=== PATIENT | female | born 2000 | race Caucasian/White ===

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

== ENCOUNTER 2021-03-17 18:25 | Outpatient (REF) | payer MEDICAID, SELFPAY ==
[2021-03-20 15:06] LABS: Chlamydia Result Negative (Negative); GC Result Negative (Negative)
== END 2021-03-17 18:26 | disposition home or self-care (01) ==
LOC: LBN 18:25
PROVIDERS: Visit Provider Nurse Practitioner Family
DX: Z11.3 Encounter for screening for infections with a predominantly sexual mode of transmission (principal)
CPT/HCPCS: 87491; 87591

== ENCOUNTER 2021-06-07 03:35 | Outpatient (CLI) | payer MEDICAID, SELFPAY ==
[2021-06-07 11:51] LABS: Kit/Specimen SENT
[2021-06-07 12:00] LABS: Abs Immature Grans 0.07 10^3/uL (0.0-0.06); Absolute Eosinophil Count 0.28 10^3/uL (0.0-0.7); Absolute Lymphocyte Count 2.29 10^3/uL (1.2-3.4); Absolute Monocyte Count 0.84 10^3/uL (0.1-0.8); Absolute Neutrophil Count 11.41 10^3/uL (1.2-6.7); Basophils % 0.5; Eosinophils % 1.9; HCT 41.9 % (36.0-46.0); HGB 13.7 g/dL (11.2-15.7); Immature Grans % 0.5; Lymphocytes % 15.3; MCH 29.9 pg (27.0-33.0); MCHC 32.7 % (32.0-36.0); MCV 91.5 fL (80-95); MPV 9.2 fL (8.0-11.0); Monocytes % 5.6; Neutrophils % 76.2; Nucleated RBC 0 %; Platelet Count 337 10^3/uL (130-400); RBC 4.58 10^6/uL (3.93-5.22); RDW 13.1 % (11.7-14.6); RDW-SD 43.9 fL; WBC 14.97 10^3/uL (4.4-10.8)
[2021-06-07 12:01] LABS: Absolute Basophil Count 0.07 10^3/uL (0.0-0.2)
[2021-06-07 13:04] LABS: TSH (W/Ref FT4) 1.81 uIU/mL (0.36-3.74)
[2021-06-08 10:58] LABS: Varicella IgG Antibody Positive (See Note)
[2021-06-08 11:46] LABS: Hepatitis B Surface Ag Negative (Negative)
[2021-06-08 12:25] LABS: HIV-1/2 Ag & Ab Screen Negative (Negative)
[2021-06-08 12:32] LABS: Hepatitis C Ab w Rflx HCV PCR Negative (Negative)
[2021-06-08 20:46] LABS: Syphilis Total Ab w/Reflex Nonreactive (Nonreactive)
[2021-06-12 14:50] LABS: Result Summary NEGATIVE; Specimen WB Whole Blood
== END 2021-06-07 03:36 | disposition home or self-care (01) ==
LOC: LBO 03:35
PROVIDERS: Visit Provider Advanced Practice Midwife
DX: Z34.91 Encounter for supervision of normal pregnancy, unspecified, first trimester (principal); R51.9 Headache, unspecified; Z68.30 Body mass index [BMI] 30.0-30.9, adult; Z11.4 Encounter for screening for human immunodeficiency virus [HIV]; Z11.59 Encounter for screening for other viral diseases; Z01.84 Encounter for antibody response examination; Z3A.10 10 weeks gestation of pregnancy
CPT/HCPCS: 86787; 86803; 86850; 86900; 86901; 87340; 87389; 81220; 84443; 85025; 86780

== ENCOUNTER 2021-06-07 12:33 | Outpatient (REF) | payer MEDICAID, SELFPAY ==
[2021-06-07 13:56] LABS: *AMPHETAMINES SCREEN URINE Negative (Negative); *BARBITURATES SCREEN URINE Negative (Negative); *BENZODIAZEPINES SCREEN URINE Negative (Negative); Cannabinoids THC Negative (Negative); Cocaine Screen,Urine Negative (Negative); METHADONE URINE SCREEN Negative (Negative); OPIATES URINE SCREEN Negative (Negative)
[2021-06-07 14:02] LABS: Tricyclic Antidepressants Negative (Negative)
[2021-06-08 14:55] LABS: Chlamydia Result Negative (Negative); GC Result Negative (Negative)
[2021-06-13 14:38] LABS: Buprenorphine Negative ng/mL (Cutoff: 5.0); Norbuprenorphine Negative ng/mL (Cutoff: 2.5)
== END 2021-06-07 12:34 | disposition home or self-care (01) ==
LOC: LBN 12:33
PROVIDERS: Visit Provider Advanced Practice Midwife
DX: Z34.91 Encounter for supervision of normal pregnancy, unspecified, first trimester (principal); Z11.3 Encounter for screening for infections with a predominantly sexual mode of transmission; Z3A.10 10 weeks gestation of pregnancy
CPT/HCPCS: 80307; 87491; 87591; 87086

== ENCOUNTER 2021-06-08 04:26 | Outpatient (CLI) | payer MEDICAID, SELFPAY ==
[2021-06-08 12:06] LABS: Glucose,1 Hr (Glucola) 96 mg/dL (80-140)
[2021-06-09 10:50] LABS: Rubella IgG Ab (UVM) Positive (See Note)
== END 2021-06-08 04:27 | disposition home or self-care (01) ==
LOC: LBO 04:26
PROVIDERS: Visit Provider Advanced Practice Midwife
DX: Z34.91 Encounter for supervision of normal pregnancy, unspecified, first trimester (principal); Z68.31 Body mass index [BMI] 31.0-31.9, adult; Z11.59 Encounter for screening for other viral diseases; Z3A.10 10 weeks gestation of pregnancy
CPT/HCPCS: 36415; 82950; 86762

== ENCOUNTER 2021-07-31 00:30 | Outpatient (CLI) | payer MEDICAID, SELFPAY ==
--- NOTE | 2021-07-31 08:00 | DI.US_ITS ---
Exam(s) US OB 2-3 TRIMESTER EXAM: US OB 2-3 TRIMESTER CLINICAL HISTORY: anatomY survey,[id number]. TECHNIQUE: Transabdominal obstetrical ultrasound was performed. COMPARISON: US ABDOMEN ULTRASOUND from 01/12/2010 FINDINGS: There is a single viable intrauterine gestation with cardiac activity identified-152 bpm. Amniotic fluid: There is a normal amount of amniotic fluid. Placental location: The placenta is posterior grade 1,with no evidence of placenta previa.Distant fro m tip of placenta to the internal cervical os is 4.7 cm ANATOMY: A 3 vessel umbilical cord is seen. A four-chamber cardiac view was obtained. Right and left ventricular outflow tracts were imaged. There are no obvious abnormalities of the spinal column evident. There is no obvious abnormal ity of the anterior abdominal wall. stomach and urinary bladder are identified and there is no evidence of hydronephrosis. No abnormalities of the upper lip region are identified. No evidence of choroid plexus cysts i n the brain. Dating parameters place this at approximately 19 weeks gestational age. BPD measures 19 weeks and 3 days HC measures 19 weeks and 2 days AC measures 18 weeks and 3 days FL measures 18 weeks and 5 days Estimated weight is 251 gm-0 pounds 9 ounces Fetus is at the 69th percentile on the Hadlock scale. IMPRESSION:: Single viable intrauterine gestation which is approximately 19 weeks gestational age, i mplying an MIL of December 25, 2021. There are no obvious anomalies evident on today's study. The placenta is posterior with no evidence of placenta previa. There is a normal amount of amniotic fluid. DATA REPOSITORY:
== END 2021-07-31 00:50 ==
PROVIDERS: PCP Advanced Practice Midwife; Visit Provider Advanced Practice Midwife
DX: Z34.92 Encounter for supervision of normal pregnancy, unspecified, second trimester (principal); Z3A.18 18 weeks gestation of pregnancy
CPT/HCPCS: 76805

== ENCOUNTER 2021-10-11 02:29 | Outpatient (CLI) | payer MEDICAID, SELFPAY ==
[2021-10-11 14:26] LABS: HCT 32.5 % (36.0-46.0); HGB 10.8 g/dL (11.2-15.7); MCH 30.2 pg (27.0-33.0); MCHC 33.2 % (32.0-36.0); MCV 90.8 fL (80-95); MPV 8.9 fL (8.0-11.0); Platelet Count 447 10^3/uL (130-400); RBC 3.58 10^6/uL (3.93-5.22); RDW 13.2 % (11.7-14.6); RDW-SD 43.1 fL; WBC 20.99 10^3/uL (4.4-10.8)
[2021-10-11 14:42] LABS: Glucose,1 Hr (Glucola) 135 mg/dL (80-140)
== END 2021-10-11 02:30 | disposition home or self-care (01) ==
LOC: LBO 02:30
PROVIDERS: Advanced Practice Midwife; PCP Advanced Practice Midwife; Visit Provider Advanced Practice Midwife
DX: Z34.93 Encounter for supervision of normal pregnancy, unspecified, third trimester (principal)
CPT/HCPCS: 36415; 82950; 85027

== ENCOUNTER 2021-10-18 02:10 | Outpatient (CLI) | payer MEDICAID, SELFPAY ==
[2021-10-18 11:59] LABS: Glucose 1 Hour 132 mg/dL
[2021-10-18 14:03] LABS: Glucose 3 Hour 116 mg/dL
== END 2021-10-18 02:11 | disposition home or self-care (01) ==
LOC: LBO 02:10
PROVIDERS: PCP Advanced Practice Midwife; Visit Provider Advanced Practice Midwife
DX: Z34.93 Encounter for supervision of normal pregnancy, unspecified, third trimester (principal)
CPT/HCPCS: 36415; 82951

== ENCOUNTER 2021-11-23 10:07 | Outpatient (CLI) | payer MEDICAID, SELFPAY ==
--- NOTE | 2021-11-23 10:00 | RT.EKG_ITS ---
APPROVED REPORT Exam: Resting ECG Reason for Exam: tachycardia, syncope Patient Location: O HR:115 bpm ECG Measurements Heart Rate 115 AXIS WY 115 P 28 QRSd 88 QRS 96 QT 314 T 1 QTc 435 Conclusion Sinus tachycardia...rate> 99 Borderline right axis deviation...QRS axis ( 90,110)
== END 2021-11-23 10:08 | disposition home or self-care (01) ==
LOC: DI.CARD 10:09
PROVIDERS: PCP Advanced Practice Midwife; Visit Provider Internal Medicine Cardiovascular Disease
DX: R00.0 Tachycardia, unspecified (principal); R55 Syncope and collapse; I45.19 Other right bundle-branch block
CPT/HCPCS: 93010

== ENCOUNTER 2021-11-23 14:59 | Outpatient (CLI) | payer MEDICAID, SELFPAY ==
--- NOTE | 2021-12-08 08:43 | W.CARDEVENT ---
Date of service: 12/08/21 Time of Service: 08:43 Cardiac Event Recorder Referring Provider:: Gavin John Indications:: Tachycardia Cardiac Event Note: This is a 14-day event monitor, ordered for tachycardia Predominant rhythm was sinus with an average heart rate of 106. Minimum was 75, maximum 181 There were very rare ventricular ectopic beats There were very rare atrial premature beats. There was one 9 beat atrial run at a rate of 135 There was no atrial fibrillation, no high-grade AV block, no pauses 3 seconds The isolated patient symptom was associated with sinus tachycardia at a rate of 105
== END 2021-11-23 15:00 | disposition home or self-care (01) ==
LOC: RT 15:02
PROVIDERS: PCP Advanced Practice Midwife; Visit Provider Internal Medicine Cardiovascular Disease
DX: R00.0 Tachycardia, unspecified (principal)
CPT/HCPCS: 93246

== ENCOUNTER 2021-12-06 13:47 | Outpatient (REF) | payer MEDICAID, SELFPAY ==
[2021-12-06 15:12] LABS: *AMPHETAMINES SCREEN URINE Negative (Negative); *BARBITURATES SCREEN URINE Negative (Negative); *BENZODIAZEPINES SCREEN URINE Negative (Negative); Cannabinoids THC Negative (Negative); Cocaine Screen,Urine Negative (Negative); METHADONE URINE SCREEN Negative (Negative); OPIATES URINE SCREEN Negative (Negative)
[2021-12-06 15:18] LABS: Tricyclic Antidepressants Negative (Negative)
[2021-12-12 14:38] LABS: Buprenorphine Negative ng/mL (Cutoff: 5.0); Norbuprenorphine Negative ng/mL (Cutoff: 2.5)
== END 2021-12-06 13:48 | disposition home or self-care (01) ==
LOC: LBN 13:47
PROVIDERS: PCP Advanced Practice Midwife; Visit Provider Advanced Practice Midwife
DX: Z34.93 Encounter for supervision of normal pregnancy, unspecified, third trimester (principal)
CPT/HCPCS: 80307; 87081

== ENCOUNTER 2021-12-22 00:30 | Outpatient (CLI) | payer MEDICAID, SELFPAY ==
[2021-12-22 00:52] VITALS: BP 126/80; PULSE 91
[2021-12-22 00:54] VITALS: TEMP 37.1
--- NOTE | 2021-12-22 01:17 | W.OBNST ---
Date of service: 12/22/21 Time of Service: 01:18 NST Evaluation Reason for NST Reasons for Nonstress Test: FALSE LABOR Gestational Age Gestational Age in Weeks and Days: 38 Weeks and 6Days Vital Signs Blood Pressure: 126/80 Pulse: 91 Temperature: 98.7 F Urine Results Urine Protein: Negative Urine Ketones: Negative Urine Glucose: Negative Urine Blood: Negative NST Information Date on Monitor: 12/22/21 Time on Monitor: 00:30 Date off Monitor: 12/22/21 Time off Monitor: 01:20 Total Time on Monitor: 50 NST Interventions: PO Hydration Contraction Frequency: irregular, mild, frequent NST Evaluation Patient States Movement: Present FHR Baseline: 150 Variability: Moderate 6-25 bpm Accelerations: 15x15 Decelerations: None and Variable NST Results: Reactive Note PETRA (done for variable decel x2) Results of PETRA: 13.0 NST Note Note: Cvx 2/60% posterior, intact membranes, vtx -2 ROP Not in labor Urine concentrated with sp gr 1.025 Pt appears comfortable, relaxed Tolerated PO hydration well & uterine irrritability decreased Discharged to home, pt declines sleep aid F/up at next sched'ed appt next week and prn NST Reviewed and Verified by: Nina Banda
[2021-12-22 01:25] VITALS: BP 126/80; PULSE 91; TEMP 37.1
--- NOTE | 2021-12-25 10:07 | HPE_ITS ---
Date of service: 12/25/21 Time of Service: 10:07 Assessment and Plan Assessment and plan (1) 39 weeks gestation of : Status: Acute Assessment and plan: A: 21 yo G1 @ 39 wks prodromal sx vs labor GBS neg, Rh+ Category 1 tracing, NST in progress Low risk for SD and PPH P: Oupt observation for cervical change and active labor Recheck cvx in 2-3 hrs PO intake as desired OB-HPI Labor/Delivery History of Present Illness Reason for Visit: Rule Out Labor Chief Complaint: Uterine Contractions. MIL Calculator Estimated Delivery Date Method Current WG Current Estimate 12/30/21 Ultrasound #1 39w 2d Other Estimates 12/22/21 LMP (Certain) 40w 3d Comments: Contractions began around 0630 this morning, are stronger then they have been to the point of stopping her in her tracks when they come. Denies bleeding or ROM. History of Present Expected Delivery Route/Plan - CNM FOB - Agus Brown (his second child, age 2) BG- Makanna GBS negative Interested in immediate PP Nexplanon Desires to use tub for labor and , Agus will be support person, Specific Issues/Plan 1. Heartburn - protonix 40mg escribed. Also using milk which helps - 1a. Symptoms recurred and she stopped taking protonix. Resuming protonix or trying OTC zantac recommended. 2. Desires LC consult after 36 wks prior to delivery 3. BMI 31, early glucola 96. @ 28 yug=164, 3 hr GTT done 10/18=nml x4 4. Smoker, half a pack per day, declines cessation assistance 5. Pt and FOB decline COVID vaccination 6. Hx depression not on meds, PHQ9 score=2, declines referral to [facility] 6a. At risk for PPD, will discuss meds toward end of preg 6b. Checked in on mood @ 34 wks, pt feels happy, declines medication 7. [place] and CF screening drawn 06/07, desires AFP 16-20 wks-declines 7a. CF screen negative, [place] result=low prob x3, female fetus 8. Hx concussions & frequent LIN's, ref to neurology sent 06/07 8a. Neuro consult completed 06/14, see note, begin Mag 400 mg daily, consider Vistaril 9. Advised low dose ASA for nulliparity & BMI, 81mg/162mg alternating daily - not taking aspirin- encouraged 10. PCN allergy with last exposure and skin rash reaction in fall 10a. screening questions, assess for allergy testing: < 1 yr since reax, pt declines testing, will consider after delivery 11. Tachycardia episodes 08/11 - referred to PCP at [facility] 11a. Saw PCP - no testing recommended - follow up visit in one month 09/[address] Rios has cleared patient for delivery at [facility] 12. Mild anemia at 28 wks, iron supplement Rx'ed 13. Seasonal allergies- Takes benadryl 50 mg twice daily. 14. Asthma - using inhaler daily, referred to PCP for asthma symptoms. Assessment: History Reviewed & Current Review of Systems Narrative: Well appearing healthy female, relaxed, conversational Constitutional Constitutional: Reports system reviewed and no additional complaints, except as documented Cardiovascular Cardiovascular: Reports system reviewed and no additional complaints, except as documented Respiratory Respiratory: Reports system reviewed and no additional complaints, except as documented Gastrointestinal Gastrointestinal: Reports system reviewed and no additional complaints, except as documented Genitourinary Genitourinary: Reports system reviewed and no additional complaints, except as documented Musculoskeletal Musculoskeletal: Reports system reviewed and no additional complaints, except as documented Integumentary/Breasts Skin/Breast: Reports system reviewed and no additional complaints, except as documented Neurologic Neurologic: Reports system reviewed and no additional complaints, except as documented Psychiatric Psychiatric: Reports system reviewed and no additional complaints, except as documented PFSH All Active Problems (Updated 12/25/21 @ 10:30 by Nina Banda) 39 weeks gestation of (Acute) (Acute) Migraine headache without aura (Acute) BMI 31.0-31.9,adult (Acute) History of depression (Acute) Headache disorder (Acute) Smoker (Acute) Mild intermittent asthma, uncomplicated (Acute 11/07/16) exercise trigger Medical History (Updated 12/25/21 @ 10:30 by Nina Banda) Acid indigestion Anemia Asthma Dyslexia Elevated glucose level Encounter for removal of etonogestrel implant History of tachycardia Lightheadedness Syncopal episodes Family History Other Stroke grandmother Social History Smoking/Tobacco Use Status: Current every day Tobacco Type: cigarettes Smoking risk assessment performed?: Yes Alcohol Intake: never Drug use: Never Substance use type: does not use Adopted: Yes Do you feel safe at home: Yes Do you feel safe in your relationship?: Yes Female Reproductive History Menstrual control method: implanted History History 1 Para 0 Hx # Term Pregnancies 0 Multiple births 0 Hx # Pregnancies 0 Ectopic pregnancies 0 AB induced 0 Hx Number of Living Children 0 AB spontaneous 0 Meds Allergies and Home Medications Allergies Allergy/AdvReac Type Severity Reaction Status Date / Time Penicillins Allergy Mild skin rash Verified 12/19/21 13:32 cats AdvReac Mild stuffy/runny Uncoded 12/19/21 13:32 nose/sneezing Home Medications Medication Instructions Recorded Confirmed Type inhalational spacing device #1 unit 08/26/17 12/19/21 Rx (Aerochamber Plus Flow-Vu) prenat.vits,victor hugo,[id number] 1 tab PO DAILY 04/26/21 12/22/21 History aspirin 81 mg tablet,delayed 81 mg PO DAILY #60 tab 06/07/21 12/22/21 Rx release albuterol sulfate 90 mcg/actuation 2 puff INHALATION Q4H PRN #1 09/27/21 12/22/21 Rx aerosol inhaler (ProAir HFA) inhaler ferrous sulfate 325 mg (65 mg 325 mg PO DAILY #60 tab 10/12/21 12/22/21 Rx iron) tablet,delayed release ondansetron HCl 4 mg tablet 4 mg PO Q8H PRN #20 tab 10/12/21 12/22/21 Rx diphenhydramine HCl 25 mg capsule 50 mg PO BID PRN cap 10/25/21 12/22/21 History (Allergy (diphenhydramine)) omeprazole 40 mg capsule,delayed 40 mg PO DAILY #30 cap 11/14/21 12/22/21 Rx release Exam Physical Exam Vital Signs Reviewed: Yes Constitutional Constitutional: no acute distress Comments: Well appearing healthy female Detailed Labor and Delivery Exam Dilation: 3.5 Effacement (%): 85 station: -2 Cervix position: mid Consistency: soft FARAH Score(Cervical Ripeness Score): 8 Amniotic Membrane Status: Intact Contraction Frequency(min): irregular Contraction Duration(sec): 50-60 Contraction Intensity: Mild Fetus A Heart Rate Baseline: 140 Monitor Accelerations: Present Monitor Decelerations: None Variability: Moderate (6-25 BPM) Presentation: Cephalic Categories: Category I Est. Weight: 7 lb 4.404 oz Est. Weight: 3300 gms HEENT Exam HEENT Exam: Normal Neck Exam Neck Exam: Normal Chest/Brest/Axilla Exam Chest Exam: Normal Breast Exam Breast Exam: Not Done Respiratory Exam Respiratory Exam: Normal Cardiovascular Exam Cardiovascular Exam: Normal Abdominal Exam Abdominal Exam: Normal (Gravid, nontender) Exam Exam: Normal Extremities Exam Extremities Exam: Normal Back/Spine/Pelvis Exam Back Exam: Normal Pelvis Adequate: Yes Skin Exam Skin Exam: Normal Neurological Exam Neurological Exam: Normal Psychiatric Exam Psychiatric Exam: Normal Results Results Group Beta Strep: Negative Blood Type: AB+ Rubella Status: Immune Varicella Immunity: Immune Risk Assessment Risk for Shoulder Dystocia Historical/Initial OB: POSITIVE FOR: Pre- BMI>30; NEGATIVE FOR: Pelvic Abnormality, Previous Shoulder Dystocia or Previous Macrosomia Increased Risk?: No Delivery Plan @ 36wks: SPont labor, Risk for Pre-Eclampsia Date Initiated/Initials: is indicated, pt advised to start @ 12 wks. JK (pt never did start taking) Yes, if one or more: NEGATIVE FOR: Hx Pre-E/Gest HTN, Chronic HTN, Multiple Gestation, Pre-gestational DM, Renal Disease, Systemic Lupus or APA Syndrome Yes, if 2 or more: POSITIVE FOR: Nulliparity and BMI>30; NEGATIVE FOR: Age>= 35 yrs, >10yr btwn pregnancies, ethinicty, Mother/Sister w/ Pre-E or Previous IUGR Risk for Post- Hemorrhage Initial: NEGATIVE FOR: Multiple Gestation, Previous PPH, Known Clotting Deficiency, Grand Multiparity or Anticoagulation At Risk?: No Risks Reviewed Risks Reviewed Upon Admission: Yes
== END 2021-12-22 01:40 | disposition home or self-care (01) ==
LOC: OBS 00:57 → BCD 09:00
PROVIDERS: PCP Advanced Practice Midwife; Visit Provider Advanced Practice Midwife
DX: O47.1 False labor at or after 37 completed weeks of gestation (principal); Z3A.38 38 weeks gestation of pregnancy
CPT/HCPCS: 59025; G0378

== ENCOUNTER 2021-12-25 10:03 | Observation (INO) | payer MEDICAID, SELFPAY ==
[2021-12-25] VITALS (60 sets, daily range): BP systolic 93–152; BP diastolic 58–88; PULSE 78–184; TEMP 36.8; O2SAT 96–100
--- NOTE | 2021-12-25 13:16 | W.PM.OBNL1 ---
Date of service: 12/25/21 Time of Service: 13:16 Pelvic Exam Dilation: 3.5 Effacement (%): 85 station: -2 Cervix Position: mid Consistency: soft Vaginal Exam Presentation: Cephalic Fetus A Monitor: External (US) Heart Rate Baseline: 130 Presentation: Cephalic Variability: Moderate (6-25 BPM) Categories: Category I Accelerations: 15 X 15 Decelerations: None Amniotic Membrane Status: Intact Assessment and Plan Assessment and plan (1) 39 weeks gestation of : Status: Acute (2) False labor after 37 weeks of gestation without delivery: Status: Acute Assessment and plan: a: No cervical change, pt able to eat well without emesis P: Discharge to home Pt plans to stay closer to hospital at her mother's tonight Will check in by phone tomorrow Objective Temp Pulse BP 98.2 F 78 126/88 12/25/21 10:27 12/25/21 10:33 12/25/21 10:33 Vital Signs Reviewed: Yes Subjective Interval history since last seen: Contractions have been the same in strength and frequency since she arrived 3 hrs ago. Did see some light spotting on post void wipe a few minutes ago. Ate a cheeseburger for lunch, denies nausea.
--- NOTE | 2021-12-25 13:28 | W.PM.OBDISCH ---
Date of service: 12/25/21 Time of Service: 13:28 DS: Diagnosis Discharge Diagnosis (1) 39 weeks gestation of : Status: Acute (2) False labor after 37 weeks of gestation without delivery: Status: Acute Discharge Plan Disposition Patient Disposition: HOME Condition: Good Discharge Details Admit Date/Time: 12/25/21 10:03 Admit Provider: Nina Banda Attending Provider: Nina Banda Primary Care Provider: Nina Banda Hospital Course Hospital Course: observation for 3 hrs, no cervical change Home Meds and New Rx's Prescriptions: No Action prenat.vits,victor hugo,[id number] Tablet 1 tab PO DAILY 0RF aspirin 81 mg tablet,delayed release (DR/EC) 81 mg PO DAILY Qty: 60 4RF Rx Instructions: take one tab daily, and two tabs every other day (81 mg/162 mg) albuterol sulfate [ProAir HFA] 90 mcg/actuation HFA aerosol inhaler 2 puff Inhalation Q4H PRN Qty: 1 2RF Rx Instructions: use with spacer ondansetron HCl 4 mg tablet 4 mg PO Q8H PRN (Reason: nausea and vomiting) Qty: 20 1RF Rx Instructions: not taking any longer ferrous sulfate 325 mg (65 mg iron) tablet,delayed release (DR/EC) 325 mg PO DAILY Qty: 60 2RF Rx Instructions: take with vitamin C containing food diphenhydramine HCl [Allergy (diphenhydramine)] 25 mg capsule 50 mg PO BID PRN (Reason: allergies) 0RF (DME) Aerochamber Plus Flow-Vu 1 EACH spacer 1 ea Miscellaneous PRN Qty: 1 0RF Rx Instructions: Disp without mask. Use with MDI as directed omeprazole 40 mg capsule,delayed release(DR/EC) 40 mg PO DAILY Qty: 30 6RF Discharge Instructions Stand Alone Forms: Center Observation Activity:: Activity as Tolerated Equipment/Supplies:: No Equipment Needed Diet:: Normal Diet Discharge Orders Discharge Orders: Discharge Order (Routine); Ordered 12/25/21 Ordered By: Nina Banda OB:DS Summary Summary Procedures: undelivered Contraception Discussed Contraception Discussed: No, Status at Discharge Functional status at discharge: independent ambulation Overall status at discharge: patient is back to baseline Mental Status: mental status grossly normal Speech and Movement: speech and movement normal and speech clear Mood: congruent mood Affect: normal affect Exam Physical Exam Vital signs: Temp Pulse BP 98.2 F 78 126/88 12/25/21 10:27 12/25/21 10:33 12/25/21 10:33 PFSH All Active Problems (Updated 12/25/21 @ 13:21 by Nina Banda) False labor after 37 weeks of gestation without delivery (Acute) 39 weeks gestation of (Acute) (Acute) Migraine headache without aura (Acute) BMI 31.0-31.9,adult (Acute) History of depression (Acute) Headache disorder (Acute) Smoker (Acute) Mild intermittent asthma, uncomplicated (Acute 11/07/16) exercise trigger Medical History (Updated 12/25/21 @ 13:21 by Nina Banda) Acid indigestion Anemia Asthma Dyslexia Elevated glucose level Encounter for removal of etonogestrel implant History of tachycardia Lightheadedness Syncopal episodes Family History Other Stroke grandmother Social History Smoking/Tobacco Use Status: Current every day Tobacco Type: cigarettes Smoking risk assessment performed?: Yes Alcohol Intake: never Drug use: Never Substance use type: does not use Adopted: Yes Do you feel safe at home: Yes Do you feel safe in your relationship?: Yes Female Reproductive History Menstrual control method: implanted History History 1 Para 0 Hx # Term Pregnancies 0 Multiple births 0 Hx # Pregnancies 0 Ectopic pregnancies 0 AB induced 0 Hx Number of Living Children 0 AB spontaneous 0 DS: Data Vitals/I&O Vitals and I&O: Vital Signs Temperature 98.2 F 12/25/21 10:27 Pulse 78 12/25/21 10:33 Pulse Rhythm Regular 12/25/21 10:27 Blood Pressure 126/88 12/25/21 10:33 Intake & Output 12/24/21 12/25/21 12/25/21 23:59 11:59 23:59 Weight 202 lb Other: Urine Color Yellow
--- NOTE | 2021-12-25 17:31 | HPE_ITS ---
Date of service: 12/25/21 Time of Service: 17:32 Assessment and Plan Assessment and plan (1) Active labor at term: Start date: 12/25/21 Start time: 16:45 Status: Acute Assessment and plan: a. admit b. ROM plus for confirmation of SROM although obvious leaking noted on exam c. COVID testing done d. Pain management options reviewed, plans nitrous and does not believe she is interested in epidural, avoid IV at this time e. Expect NVD. OB-HPI Labor/Delivery History of Present Illness Reason for Visit: SROM and worsening contractions since 1644 today Chief Complaint: Uterine Contractions; Suspected Rupture of Membranes , A ssociated Signs and Symptoms of Suspected ROM: leaking of clear fluid from vagina. MIL Calculator Estimated Delivery Date Method Current WG Current Estimate 12/30/21 Ultrasound #1 39w 2d Other Estimates 12/22/21 LMP (Certain) 40w 3d History of Present Expected Delivery Route/Plan - CNM FOB - Agus Brown (his second child, age 2) BG- [place] GBS negative Interested in immediate PP Nexplanon Desires to use tub for labor and , Agus will be support person, Specific Issues/Plan 1. Heartburn - protonix 40mg escribed. Also using milk which helps - 1a. Symptoms recurred and she stopped taking protonix. Resuming protonix or trying OTC zantac recommended. 2. Desires LC consult after 36 wks prior to delivery 3. BMI 31, early glucola 96. @ 28 mzo=411, 3 hr GTT done 10/18=nml x4 4. Smoker, half a pack per day, declines cessation assistance 5. Pt and FOB decline COVID vaccination 6. Hx depression not on meds, PHQ9 score=2, declines referral to [facility] 6a. At risk for PPD, will discuss meds toward end of preg 6b. Checked in on mood @ 34 wks, pt feels happy, declines medication 7. [place] and CF screening drawn 06/07, desires AFP 16-20 wks-declines 7a. CF screen negative, [place] result=low prob x3, female fetus 8. Hx concussions & frequent LIN's, ref to neurology sent 06/07 8a. Neuro consult completed 06/14, see note, begin Mag 400 mg daily, consider Vistaril 9. Advised low dose ASA for nulliparity & BMI, 81mg/162mg alternating daily - not taking aspirin- encouraged 10. PCN allergy with last exposure and skin rash reaction in fall 10a. screening questions, assess for allergy testing: < 1 yr since reax, pt declines testing, will consider after delivery 11. Tachycardia episodes 08/11 - referred to PCP at [facility] 11a. Saw PCP - no testing recommended - follow up visit in one month 09/[address] Rios has cleared patient for delivery at [facility] 12. Mild anemia at 28 wks, iron supplement Rx'ed 13. Seasonal allergies- Takes benadryl 50 mg twice daily. 14. Asthma - using inhaler daily, referred to PCP for asthma symptoms. Narrative: is reviewed and up to date. MICA Informed Consent Informed Consent: Other (pain management options discussed, does not plan epidural, interested in nitrous oxide therapy.MICA) Review of Systems Narrative: Review of systems is normal other than that mentioned in chief complaint. MICA PFS All Active Problems (Updated 12/25/21 @ 17:43 by Joana King CNM) Active labor at term (Acute) False labor after 37 weeks of gestation without delivery (Acute) 39 weeks gestation of (Acute) (Acute) Migraine headache without aura (Acute) BMI 31.0-31.9,adult (Acute) History of depression (Acute) Headache disorder (Acute) Smoker (Acute) Mild intermittent asthma, uncomplicated (Acute 11/07/16) exercise trigger Medical History Acid indigestion Anemia Asthma Dyslexia Elevated glucose level Encounter for removal of etonogestrel implant History of tachycardia Lightheadedness Syncopal episodes Family History Other Stroke grandmother Social History Smoking/Tobacco Use Status: Current every day Tobacco Type: cigarettes Smoking risk assessment performed?: Yes Alcohol Intake: never Drug use: Never Substance use type: does not use Adopted: Yes Do you feel safe at home: Yes Do you feel safe in your relationship?: Yes Female Reproductive History Menstrual control method: implanted History History 1 Para 0 Hx # Term Pregnancies 0 Multiple births 0 Hx # Pregnancies 0 Ectopic pregnancies 0 AB induced 0 Hx Number of Living Children 0 AB spontaneous 0 Meds Allergies and Home Medications Allergies Allergy/AdvReac Type Severity Reaction Status Date / Time Penicillins Allergy Mild skin rash Verified 12/25/21 17:41 cats AdvReac Mild stuffy/runny Uncoded 12/25/21 17:41 nose/sneezing Home Medications Medication Instructions Recorded Confirmed Type inhalational spacing device #1 unit 08/26/17 12/25/21 Rx (Aerochamber Plus Flow-Vu) prenat.vits,victor hugo,[id number] 1 tab PO DAILY 04/26/21 12/25/21 History aspirin 81 mg tablet,delayed 81 mg PO DAILY #60 tab 06/07/21 12/25/21 Rx release albuterol sulfate 90 mcg/actuation 2 puff INHALATION Q4H PRN #1 09/27/21 12/25/21 Rx aerosol inhaler (ProAir HFA) inhaler ferrous sulfate 325 mg (65 mg 325 mg PO DAILY #60 tab 10/12/21 12/25/21 Rx iron) tablet,delayed release ondansetron HCl 4 mg tablet 4 mg PO Q8H PRN #20 tab 10/12/21 12/25/21 Rx diphenhydramine HCl 25 mg capsule 50 mg PO BID PRN cap 10/25/21 12/25/21 History (Allergy (diphenhydramine)) omeprazole 40 mg capsule,delayed 40 mg PO DAILY #30 cap 11/14/21 12/25/21 Rx release Exam Physical Exam Vital signs: Temp Pulse BP 98.2 F 78 126/88 12/25/21 10:27 12/25/21 10:33 12/25/21 10:33 Narrative: VS pending for this admission. KH Constitutional Constitutional: mild distress (contractions) and average body habitus Detailed Labor and Delivery Exam Dilation: 4.5 Effacement (%): 90 station: -1 Position: FRANKIE Cervix position: mid Consistency: soft Farah Score: Cervical Points Exam 0 1 2 3 Dilation Closed 1-2cm 3-4 cm 5-6cm Effacement 0-30% 40-50% 60-70% 80% Consistency Firm Medium Soft Station -3 -2 -1,0 +1,+2 Position Posterior Mid Anterior FARAH Score(Cervical Ripeness Score): 10 Amniotic Membrane Status: Ruptured Rupture Method: Spontaneous Amniotic Fluid: Clear Contraction Frequency(min): 2-4 Contraction Duration(sec): 60-90 Contraction Intensity: Moderate/Strong Fetus A Heart Rate Baseline: 130 Monitor Accelerations: Absent Monitor Decelerations: None Variability: Moderate (6-25 BPM) Presentation: Cephalic Categories: Category I Est. Weight: 8 lb Date of Membrane Rupture: 12/25/21 Time of Membrane Rupture: 16:45 HEENT Exam HEENT Exam: Normal Neck Exam Neck Exam: Not Done Chest/Brest/Axilla Exam Chest Exam: Normal Breast Exam Breast Exam: Not Done Respiratory Exam Respiratory Exam: Normal Cardiovascular Exam Cardiovascular Exam: Normal Abdominal Exam Abdominal Exam: Normal Rectal Exam Rectal Exam: Not Done Exam Exam: Normal Extremities Exam Extremities Exam: Normal Back/Spine/Pelvis Exam Pelvis Adequate: Yes Skin Exam Skin Exam: Normal Neurological Exam Neurological Exam: Normal Psychiatric Exam Psychiatric Exam: Normal Results Results Group Beta Strep: Negative Blood Type: AB+ Rubella Status: Immune Varicella Immunity: Immune Lab Results: HIV neg, Hep B and C neg, Syphilis neg. KH Risk Assessment Risk for Shoulder Dystocia Historical/Initial OB: POSITIVE FOR: Pre- BMI>30; NEGATIVE FOR: Pelvic Abnormality, Previous Shoulder Dystocia or Previous Macrosomia 40 Weeks: NEGATIVE FOR: EFW> 4500 gms, Maternal Weight Gain >40lb or Post Dates Delivery Plan @ 36wks: SPont labor, Delivery Plan @ 40 wks: Risk for Pre-Eclampsia Date Initiated/Initials: is indicated, pt advised to start @ 12 wks. JK (pt never did start taking) Yes, if one or more: NEGATIVE FOR: Hx Pre-E/Gest HTN, Chronic HTN, Multiple Gestation, Pre-gestational DM, Renal Disease, Systemic Lupus or APA Syndrome Yes, if 2 or more: POSITIVE FOR: Nulliparity and BMI>30; NEGATIVE FOR: Age>= 35 yrs, >10yr btwn pregnancies, ethinicty, Mother/Sister w/ Pre-E or Previous IUGR Risk for Post- Hemorrhage Initial: NEGATIVE FOR: Multiple Gestation, Previous PPH, Known Clotting Deficiency, Grand Multiparity or Anticoagulation At Risk?: No Counseled re: Active Management: Yes Risks Reviewed Risks Reviewed Upon Admission: Yes
[2021-12-25 19:02] LABS: HCT 41.4 % (36.0-46.0); HGB 13.6 g/dL (11.2-15.7); MCH 29.6 pg (27.0-33.0); MCHC 32.9 % (32.0-36.0); MCV 90.2 fL (80-95); MPV 9.5 fL (8.0-11.0); Platelet Count 558 10^3/uL (130-400); RBC 4.59 10^6/uL (3.93-5.22); RDW-SD 46.3 fL
[2021-12-25 19:07] LABS: WBC 26.99 10^3/uL (4.4-10.8)
[2021-12-26] VITALS (7 sets, daily range): BP systolic 101–146; BP diastolic 65–82; PULSE 83–117
== END 2021-12-25 12:30 | disposition home or self-care (01) ==
PROVIDERS: Advanced Practice Midwife; Admitting Provider Advanced Practice Midwife; PCP Advanced Practice Midwife; Visit Provider Advanced Practice Midwife
DX: O47.1 False labor at or after 37 completed weeks of gestation (principal); Z3A.39 39 weeks gestation of pregnancy; O99.333 Smoking (tobacco) complicating pregnancy, third trimester; F17.210 Nicotine dependence, cigarettes, uncomplicated; O99.013 Anemia complicating pregnancy, third trimester; D64.9 Anemia, unspecified; O99.513 Diseases of the respiratory system complicating pregnancy, third trimester; J45.909 Unspecified asthma, uncomplicated
CPT/HCPCS: 36415; 85027; 86850; 86900; 86901; 87635; G0378

== ENCOUNTER 2021-12-25 18:10 | Inpatient (IN) | payer MEDICAID, SELFPAY ==
[2021-12-25] VITALS (29 sets, daily range): BP systolic 107–152; BP diastolic 7–88; PULSE 75–184; RESP 16; TEMP 36.9–37.3; BMI 31.6
[2021-12-25 18:19] LABS: ROM Plus Positive
[2021-12-25 18:54] LABS: COVID-19 PCR Negative (Negative)
[2021-12-25 18:57] LABS: Source Nasal/Nares
--- NOTE | 2021-12-25 19:18 | PGE_ITS ---
Date of service: 12/25/21 Time of Service: 19:18 Pelvic Exam Dilation: 6 Effacement (%): 90 station: -1 Cervix Position: mid Consistency: soft ROM Plus: Positive Contractions Monitor Mode: Palpation Contraction Frequency(min): 2-3 Intensity: Moderate/Strong Fetus A Heart Rate Baseline: 130 Variability: Moderate (6-25 BPM) Categories: Category I Accelerations: 15 X 15 Decelerations: None Assessment and Plan Assessment and plan (1) Active labor at term: Status: Acute Assessment and plan: 1. will start IV hydration 2. Epidural for pain management requested and anesthesia notified by supervisor taping Objective Temp Pulse Resp BP 98.6 F 75 16 135/7 L 12/25/21 18:00 12/25/21 18:00 12/25/21 18:00 12/25/21 18:00 Laboratory Results Membranes Rupture Positive 12/25/21 17:21 COVID-19 Source Nasal/Nares 12/25/21 17:29 SARS-CoV-2 (PCR) Negative (Negative) 12/25/21 17:29 Subjective Interval history since last seen: requesting epidural. unable to tolerate nitrous due to nausea and tub is no longer helping her discomfort. Picker Machine Operator was notified by nursing, IV will be placed and anesthesia is called. KH Interventions Pain Management Interventions: Comfort Measures , Breathing/Relaxation Techniques, Position Change and Soothing Environment and Epidural (requested. MICA). Results Abnormal Lab Findings: elevated white count but patient has been laboring most of the day and is afebrile, GBS negative, active labor. will reassess as indicated. MICA
--- NOTE | 2021-12-25 19:31 | W.ANESPRE ---
General Info Date of Service Date Performed: 12/25/21 Height: 5 ft 7 in Weight: 91.626 kg Body Mass Index (BMI): 31.6 Surgical Procedure: Labor epidural Meds Allergies and Home Medications Allergies Allergy/AdvReac Type Severity Reaction Status Date / Time Penicillins Allergy Mild skin rash Verified 12/25/21 17:41 cats AdvReac Mild stuffy/runny Uncoded 12/25/21 17:41 nose/sneezing Home Medication Medication Instructions Recorded inhalational spacing device #1 unit 08/26/17 (Aerochamber Plus Flow-Vu) prenat.vits,victor hugo,[id number] 1 tab PO DAILY 04/26/21 aspirin 81 mg tablet,delayed 81 mg PO DAILY #60 tab 06/07/21 release albuterol sulfate 90 mcg/actuation 2 puff INHALATION Q4H PRN #1 09/27/21 aerosol inhaler (ProAir HFA) inhaler ferrous sulfate 325 mg (65 mg 325 mg PO DAILY #60 tab 10/12/21 iron) tablet,delayed release ondansetron HCl 4 mg tablet 4 mg PO Q8H PRN #20 tab 10/12/21 diphenhydramine HCl 25 mg capsule 50 mg PO BID PRN cap 10/25/21 (Allergy (diphenhydramine)) omeprazole 40 mg capsule,delayed 40 mg PO DAILY #30 cap 11/14/21 release Current Visit Medications: Current Medications Generic Name Dose Route Start Last Admin Trade Name Freq PRN Reason Stop Dose Admin Bupivacaine HCl 0 ml 12/25/21 19:28 Bupivacaine 0.25% Pres-Free 10 Ml Vial EP 12/25/21 19:29 NOW ONE Fentanyl 0 mcg 12/25/21 19:28 Fentanyl 100 Mcg/2 Ml Vial EP 12/25/21 19:29 NOW ONE Fentanyl/Ropivacaine 200 ml 12/25/21 19:30 Fentanyl/Ropivacaine 2 Mcg/Ml And 0.1% 200 Ml Cadd Cassette EP DIRECTED LUIZA Ringer's Solution 500 mls @ 500 mls/hr 12/25/21 19:28 IV 12/25/21 20:27 BOLUS ONE PFSH Active Problems Active Problems: Problem Status Onset Code Active labor at term False labor after 37 weeks of gestation without delivery O47.1 39 weeks gestation of Z3A.39 Z34.90 Migraine headache without aura G43.009 BMI 31.0-31.9,adult Z68.31 History of depression Z86.59 Headache disorder R51.9 Smoker F17.200 Mild intermittent asthma, uncomplicated 11/07/16 J45.20 Medical History Medical History Acid indigestion Anemia Asthma Dyslexia Elevated glucose level Encounter for removal of etonogestrel implant History of tachycardia Lightheadedness Syncopal episodes Tobacco Smoking/Tobacco Use Status: Current every day Tobacco Type: cigarettes Alcohol Alcohol Intake: never Substance Use Substance use: Never Substance use type: does not use Prental History History 1 Para 0 Hx # Term Pregnancies 0 Multiple births 0 Hx # Pregnancies 0 Ectopic pregnancies 0 AB induced 0 Hx Number of Living Children 0 AB spontaneous 0 Vital Signs and Lab Results Vital Signs Most Recent Vital Signs in EMR: Most Recent Vital Signs Temp Pulse Resp BP 37.0 C 75 16 135/7 L 12/25/21 18:00 12/25/21 18:00 12/25/21 18:00 12/25/21 18:00 Lab Results Blood Type / Crossmatch: No Data to Display Complete Blood Count: White Blood Count 26.99 10^3/uL (4.4-10.8) H* 12/25/21 18:45 12/25/21 Red Blood Count 4.59 10^6/uL (3.93-5.22) 12/25/21 18:45 12/25/21 Hemoglobin 13.6 g/dL (11.2-15.7) 12/25/21 18:45 12/25/21 Hematocrit 41.4 % (36.0-46.0) 12/25/21 18:45 12/25/21 Platelet Count 558 10^3/uL (130-400) H 12/25/21 18:45 12/25/21 Complete Metabolic Panel: No Data to Display Liver Function Panel: No Data to Display Coagulation Panel: No Data to Display Cardiac Panel: No Data to Display Arterial Blood Gas: No Data to Display Venous Blood Gas: No Data to Display Pancreas Panel: No Data to Display Thyroid Panel: No Data to Display Infectious Disease: Coronavirus (COVID-19)(PCR) Negative (Negative) 12/25/21 17:29 12/25/21 Coronavirus 2019 Source Nasal/Nares 12/25/21 17:29 12/25/21 Blood Cultures: No Data to Display Toxicology Panel: Urine Amphetamines Screen Negative (Negative) 12/06/21 11:00 12/06/21 Urine Benzodiazepines Screen Negative (Negative) 12/06/21 11:00 12/06/21 Urine Barbiturates Screen Negative (Negative) 12/06/21 11:00 12/06/21 Urine Cocaine Screen Negative (Negative) 12/06/21 11:00 12/06/21 Urine Methadone Screen Negative (Negative) 12/06/21 11:00 12/06/21 Urine Opiates Screen Negative (Negative) 12/06/21 11:00 12/06/21 Ur Tricyclic Antidepressants Screen Negative (Negative) 12/06/21 11:00 12/06/21 Ur Tetrahydrocannabinol (THC) Scrn Negative (Negative) 12/06/21 11:00 12/06/21 Panel: No Data to Display Anesthesia Assessment and Plan Anesthesia History Personal History: No History of Anesthesia Complications Family History: No Family History of Anesthesia Complications Exercise Tolerance Exercise Tolerance: Metabolic Equivalents>4 Pertinent Negatives Pertinent Negatives: No Symptoms of GERD, No Major Cardiovascular Symptoms or Complaints, No Major Pulmonary Symptoms or Complaints and No History of CVA/TIA Cardiac & Pulmonary Exam Cardiac Exam: Normal S1/S2 Heart Sounds Pulmonary Exam: Clear Bilateral Breath Sounds Implantable Cardiac Device Does patient have a Pacemaker or an ICD?: No Airway Exam Known Difficult Airway: No Mallampati Class: 2 Mouth Opening: Normal (> 3cm) Thyromental Distance: Greater than 3 cm Neck Range of Motion: Full ROM Neck Circumference: Normal Teeth Condition: Normal Dentition (Tongue ring in place) ASA Classification ASA Score: ASA 2 Emergency Case?: No NPO Status NPO Status: NPO Clears >2 hours, Solids >8 hours Status Status: Confirmed Anesthesia Plan Resuscitation Status: Full Code Anesthesia Technique: Epidural Anesthesia Airway Planned: Natural Airway Monitors Used: Standard Monitors
[2021-12-25] MEDS: Lactated Ringers 500 ML IV (19:45)
[2021-12-25] MEDS: Bupivacaine 0.25% Pres-Free 10 ML VIAL EP (20:03)
[2021-12-25] MEDS: fentaNYL 100 MCG/2 ML VIAL EP (20:04)
--- NOTE | 2021-12-25 20:19 | W.ANESNEU ---
Epidural/Spinal Catheter Date Performed: 12/25/21 Procedure Start: 19:56 Procedure Stop: 20:20 Requesting Provider: Joana King Procedure Location: Obstetrics Reason Performed: Labor Epidural Standard Monitors Applied: Blood Pressure, SpO2 and See EMR for corresponding vital signs Patient Position: Sitting Sedation Given (Indicate Dose Given): No Sedation given Patient Mental Status: Awake Sterility: Hand Hygiene, Surgical Cap, Surgical Mask, Sterile Gloves, Sterile Drape/Sheet and Chlorhexidine Procedure Location: L2-L3 Interspace Epidural Needle: Tuohy 18 Gauge Needle Length: 3.5 Inch Needle Approach: Midline Epidural Procedure: Skin Prepped, Sterile Drape Placed, 1% Lidocaine to skin and subcutaneous tissue with 25G needle, Tuohy Needle placed, KAUSHIK to Saline Used, Epidural Catheter Placed, Negative CSF Flow and Tuohy Needle Removed Catheter Placed?: Catheter Placed Test Dose (Indicate Dose Given): 3ml 1.5% Lidocaine with 1:200K Epinephrine Given and Negative Test Dose Loss of Resistance Depth (cm): 9 Catheter depth at skin (cm): 15 Dressing: Tegaderm Applied, Mastisol Used and Dressing reinforced with Tape Epidural Provider Bolus (Indicate Dose Given): Total Bupivacaine 0.25% Given (ml) Dose:: 6 ml Additives (Indicate Dose Given ): Fentanyl PF Dose:: 100 mcg Infusion Medication: Medication Infusion Began (Initiated at 2016) Medication Infusion: Ropivacaine 0.1% with Fentanyl 2mcg/ml Maintenance Infusion Rate (ml/hour): 10 PCEA Bolus Dose (ml): 5 Post Procedure Pain score (0-10): 0 Block Level: N/A Paresthesia: Right Paresthesia Duration: Transient Ultrasound: Not Used Number of Attempts (See previous attempts in note section): 1 Procedure Tolerated: No Complications and Patient tolerated well Procedure Outcome: Successful Procedure Comment:: some numbness upper thighs, maintains leg strength Performed By: Fabiola العراقي
[2021-12-25] MEDS: Lactated Ringers 500 ML 100 ML IV (21:48)
--- NOTE | 2021-12-25 21:49 | W.PM.OBNL1 ---
Date of service: 12/25/21 Time of Service: 21:49 Pelvic Exam Comments: Deferred at this time Contractions Monitor Mode: External Contraction Frequency(min): q2-3 Intensity: Moderate Fetus A Monitor: External (US) Heart Rate Baseline: 145 Presentation: Cephalic Variability: Moderate (6-25 BPM) Categories: Category I Accelerations: 15 X 15 Decelerations: None Amniotic Membrane Status: Ruptured Assessment and Plan Assessment and plan (1) Spontaneous rupture of amniotic membranes: Status: Acute (2) Active labor at term: Status: Acute Assessment and plan: A: Active labor in primipara Epidural anesthesia Category 1 tracing generally, occasional nonrecurrent short variable P: obs for progression to 2nd stage Anticipate Objective Temp Pulse Resp BP 98.5 F 75 16 135/7 L 12/25/21 20:19 12/25/21 18:00 12/25/21 18:00 12/25/21 18:00 Laboratory Results Membranes Rupture Positive 12/25/21 17:21 COVID-19 Source Nasal/Nares 12/25/21 17:29 SARS-CoV-2 (PCR) Negative (Negative) 12/25/21 17:29 Objective Narrative Objective Narrative: Afebrile, normotensive Comfortable after epidural placed A few short variable decels have been noted but are non-recurrent Tracing remains category 1 overall Subjective Interval history since last seen: Epidural is very effective, pt pleased and comfortable, chatting on Facetime, FOB at bedside.
[2021-12-25] MEDS: Oxytocin/Normal Saline 30 UNIT/500 ML BAG 95 UNITS IV (23:00)
[2021-12-25] MEDS: Lactated Ringers 250 ML 500 ML IV (23:00)
--- NOTE | 2021-12-25 23:37 | OBVDS_ITS ---
Date of service: 12/25/21 Time of Service: 23:37 OB Labor/ Delivery Information Baby A Delivery Delivery Method: Spontaneaous Presentation: Cephalic Cephalic Position: Vertex Vertex Position: Left Occipital Posterior Breech Position: N/A Cord Description-Baby A: 3 Vessels Estimated Blood Loss: 350 Delivery Outcome: Liveborn Transferred: Remains with Mother Note: Pt relaxed after epidural was placed but shortly began to feel rectal pressure, was found to be fully dilated with head at +2 in LOP position, light meconium stained fluid noted. 2nd stage huddle completed and pt began pushing with excellent efforts. Tracing was category 2 with variable and early's to 90's during pushes, recovering to 110 between contractions and variability remained moderate. Pt was repositioned to LLP and 02 per mask was administered. accomplished over attempted intact perineum of a vigorous female infant with head in LOP position, shoulders came easily, bulb sx on field and handed to mother's arms. Pitocin IV bolus begun, cord clamped at 4 minutes of age and cut by FOB, cord blood then collected. Foreman placenta intact with 3VC, minimal lochia well controlled with fundus firm. First degree perineal laceration repaired with 3.0 Vicryl under epidural anesthesia. Straight cath'ed for 100 ml concentrated urine as pt had not voided for several hours. Strong family bonding observed, apgars 8/10, weight 3680 gms. Providers Nurse Accounting Practice Manager: Nina Banda Nurse: Keli Weber Nurse: Shahla Lewis Labor/Delivery Information Number of Babies in Womb: 1 Steroids Given: None Reason Steroids Not Administered: N/A Group Beta Strep: Negative Antibiotics Administered: No Rubella Status: Immune Blood Type: AB+ Varicella Immunity: Immune Medication in Delivery: Pitocin IV Maternal Complications: None Shoulder Dystocia: No Stages of Labor Onset of Labor Date: 12/25/21 Onset of Labor Time: 17:00 Complete Dilatation Date: 12/25/21 Complete Dilatation Time: 10:15 Labor - Stage 1 Duration: 0 minutes ROM Baby A: 12/25/21 ROM Baby A: 17:00 Delivery Date-Baby A: 12/25/21 Delivery Time-Baby A: 22:57 Labor Stage 2 Duration: 12 hours and 42 minutes Placenta Delivery Date-Baby A: 12/25/21 Placenta Delivery Time-Baby A: 23:05 Labor-Stage 3 Duration: 8 minutes Total Length of Labor-Baby A: 5 hours and 57 minutes Placenta Status: Delivered Baby A Gender: Female Gestational Status: Term (39-41.6 wks) Gestational Age in Weeks/Days: 40 Weeks and 0 Days weight: 8 lb 1.808 oz Weight Comment: 3680 gms Score-1 Minute Interval(Baby A) Heart Rate-1 minute: 100 BPM or Greater Respiratory Effort- 1 minute: Spontaneous/Strong Cry Muscle Tone-1 minute: Active Movement Reflex Response-1 minute: Prompt Response Color-1 minute: Pallor or Cyanosis Total Score-1 minute: 8 Score-5 Minute Interval(Baby A) Heart Rate- 5 minute: 100 BPM or Greater Respiratory Effort-5 minute: Spontaneous/Strong Cry Muscle Tone-5 minute: Active Movement Reflex Response-5 minute: Prompt Response Color-5 minute: [place]/No Cyanosis Total Score- 5 minute: 10
--- NOTE | 2021-12-26 00:51 | OBPPV_ITS ---
Date of service: 12/26/21 Time of Service: 10:43 Assessment and Plan Assessment and plan (1) Term delivered: Status: Acute Assessment and plan: A: PPD#1, nml recovery, s/p epidural off to a good start Hgb 11.1. temp 99.1, pulse 85 WBC's elevated @ 29 this morning, up from admission level of 22 Pt satisfied with experience P: Discussed WBC's with Dr. Paniagua Check temp q 6 hrs, repeat CBC in the morning Plan Nexplanon insertion prior to discharge Expecting discharge to home tomorrow morning At risk for PPD d/t hx of depression, not on meds Plan for 2 & 6 wks f/up Subjective Subjective Interval history: Pt states she feels good, plans to shower after breakfast, breastfed well x1, satisfied with experience Patient comments: Pain well controlled, Tolerating diet and Flatus present Patient's Mood: Happy, tired [place] baby status: Doing well, Nursing well, Rooming in and Strong Bonding Observed feeding status: Exclusively breast feeding Exam Physical Exam Vital signs: Temp Pulse Resp BP 99.2 F 113 H 16 112/59 L 12/25/21 21:50 12/25/21 23:28 12/25/21 18:00 12/25/21 23:28 Vital Signs Reviewed: Yes Notable Details: temp after delivery was 99.7, watching trends q6 hrs Constitutional Constitutional: no acute distress and average body habitus HEENT Exam HEENT Exam: Normal Neck Exam Neck Exam: Normal Breast Exam Bilateral: Breast Exam: Normal and Soft Nipple Exam: Normal and Uninjured Respiratory Exam Respiratory Exam: Normal Cardiovascular Exam Cardiovascular Exam: Normal Abdominal Exam Abdomen: Other (Gravid, nontender) Fundal Exam Fundus: Below Umbilicus and Firm Rectal Exam Rectal Exam: Normal Exam Perineum: Normal and Repair Intact Comments: minimal rubra, no clots Extremities Exam Extremity Exam: Normal and Full ROM Back/Spine/Pelvis Exam Back Exam: Normal Skin Exam Skin Exam: Normal Neurological Exam Neurological Exam: Normal Psychiatric Exam Psychiatric Exam: Normal DetailedPsychiatric Exam Psych Exam: Normal Affect, Normal Thougth Process and Cooperative
[2021-12-26 02:58] VITALS: BP 132/82; PULSE 117; RESP 16; TEMP 37.6
[2021-12-26 05:50] VITALS: BP 129/84; PULSE 101; RESP 17; TEMP 37.1
[2021-12-26 07:58] LABS: HCT 33.4 % (36.0-46.0); HGB 11.1 g/dL (11.2-15.7); MCH 29.5 pg (27.0-33.0); MCHC 33.2 % (32.0-36.0); MCV 88.8 fL (80-95); MPV 9.6 fL (8.0-11.0); Platelet Count 447 10^3/uL (130-400); RBC 3.76 10^6/uL (3.93-5.22); RDW-SD 45.1 fL
[2021-12-26 08:00] VITALS: BP 123/73; PULSE 85; RESP 14; TEMP 37.3
[2021-12-26 08:07] LABS: WBC 29.97 10^3/uL (4.4-10.8)
[2021-12-26] MEDS: Hamamelis Leaf/Glycerin 100 EACH BOX PR (08:07)
[2021-12-26] MEDS: Dibucaine 1% 28 GM TUBE TP (08:07)
--- NOTE | 2021-12-26 09:48 | W.ANESPOSTOP ---
Postoperative Evaluation Date, Time and Location Date Performed: 12/26/21 Time Performed: 09:20 Patient Location: Day Surgery Unit Vital Signs Most Recent Imported Vital Signs: Most Recent Vital Signs Temp Pulse Resp BP 37.3 C 85 14 123/73 12/26/21 08:00 12/26/21 08:00 12/26/21 08:00 12/26/21 08:00 Pain Score Most Recent Pain Score: Most Recent Pain Score Pain Level 9 12/25/21 18:00 Assessment Mental Status: Awake (Alert & Oriented to Patient Baseline) Airway and Respiratory Function: Patent airway with normal (patient baseline) respiratory exam Cardiovascular Function: Hemodynamically Stable Hydration Status: Adequately Hydrated Nausea & Vomiting: No Nausea or Vomiting Pain: Pt. Denies Any Pain Peripheral Nerve Block: Patient did not receive a nerve block
[2021-12-26] MEDS: Ibuprofen 600 MG TAB PO ×2 (11:39→20:24)
[2021-12-26] MEDS: Acetaminophen 325 MG TAB 650 MG PO (11:40)
[2021-12-26 12:30] VITALS: BP 120/78; PULSE 90; TEMP 37
[2021-12-26 15:46] VITALS: TEMP 36.8
[2021-12-26 19:30] VITALS: BP 134/85; PULSE 67; TEMP 36.8
[2021-12-27 00:30] VITALS: BP 129/78; PULSE 66; RESP 18; TEMP 36.6
[2021-12-27] MEDS: Ibuprofen 600 MG TAB PO (03:08)
[2021-12-27 03:16] VITALS: TEMP 36.5
[2021-12-27 06:58] LABS: HCT 34.1 % (36.0-46.0); HGB 10.9 g/dL (11.2-15.7); MCH 29.2 pg (27.0-33.0); MCV 91.4 fL (80-95); MPV 9.2 fL (8.0-11.0); Platelet Count 396 10^3/uL (130-400); RBC 3.73 10^6/uL (3.93-5.22); RDW 14.1 % (11.7-14.6); RDW-SD 47.5 fL; WBC 17.26 10^3/uL (4.4-10.8)
[2021-12-27] MEDS: Dibucaine 1% 28 GM TUBE TP (08:07)
[2021-12-27] MEDS: Docusate Sodium 100 MG CAP PO (08:07)
--- NOTE | 2021-12-27 09:27 | OBPPV_ITS ---
Date of service: 12/27/21 Time of Service: 09:28 Assessment and Plan Assessment and plan (1) care following vaginal delivery: Status: Acute Assessment and plan: continue present management will insert nexplanon prior to discharge, patient has had one in past and is aware of risks, benefits and alternatives as well as procedure. potential discharge this afternoon. [place] (2) Lactating mother: Status: Acute Assessment and plan: continue present management. Subjective Subjective Interval history: Feeling tired and achy but overall well. Denies fever or chills. Would like N explanon prior to discharge. Narrative: working with nurses to establish good breast feeding techniques. Speaks lovingly about baby. Possible discharge later today. Exam Physical Exam Vital signs: Temp Pulse Resp BP 97.7 F 66 18 129/78 12/27/21 03:16 12/27/21 00:30 12/27/21 00:30 12/27/21 00:30 Vital Signs Reviewed: Yes Constitutional Constitutional: no acute distress and average body habitus HEENT Exam HEENT Exam: Normal Neck Exam Neck Exam: Not Done Respiratory Exam Respiratory Exam: Normal Cardiovascular Exam Cardiovascular Exam: Normal Fundal Exam Fundus: Below Umbilicus and Firm Comment: non tender. Exam Perineum: Normal Extremities Exam Extremity Exam: Normal Skin Exam Skin Exam: Normal Neurological Exam Neurological Exam: Normal Psychiatric Exam Psychiatric Exam: Normal Results Hemoglobin/Hematocrit: Hgb 10.9 g/dL (11.2-15.7) L 12/27/21 06:40 Hct 34.1 % (36.0-46.0) L 12/27/21 06:40 Abnormal Lab Findings: Abnormal Labs 12/26/21 12/27/21 07:40 06:40 WBC 29.97 H* 17.26 H D RBC 3.76 L 3.73 L Hgb 11.1 L D 10.9 L Hct 33.4 L 34.1 L Plt Count 447 H
[2021-12-27 09:35] VITALS: BP 126/78; PULSE 64; RESP 18; TEMP 36.5; O2SAT 98
[2021-12-27] MEDS: Lidocaine 1% Pres-Free 5 ML VIAL (12:15)
--- NOTE | 2021-12-27 12:28 | DSE_ITS ---
Date of service: 12/27/21 Time of Service: 12:28 DS: Diagnosis Discharge Diagnosis (1) care following vaginal delivery: Status: Acute Asessment and Plan: 1. Is aware of PP warning signs and when / how to call packaging sales consultant provider 2. RTO 2 and 6 weeks PP. Kh (2) Lactating mother: Status: Acute Asessment and Plan: continue present management and keep visits as scheduled. Discharge Plan Disposition Patient Disposition: HOME Condition: Good Discharge Details Reason For Visit: Term Labor Admit Date/Time: 12/25/21 18:10 Admit Provider: Nina Banda Attending Provider: Joana King Primary Care Provider: Nina Banda Hospital Course Hospital Course: Spontaneous ROM and labor with use of epidural for pain management. NVD without complications. Normal PP course. Breast feeding her baby girl. Nexplanon placed prior to discharge. Home Meds and New Rx's Prescriptions: Continued prenat.vits,victor hugo,[id number] Tablet 1 tab PO DAILY 0RF albuterol sulfate [ProAir HFA] 90 mcg/actuation HFA aerosol inhaler 2 puff Inhalation Q4H PRN Qty: 1 2RF Rx Instructions: use with spacer ferrous sulfate 325 mg (65 mg iron) tablet,delayed release (DR/EC) 325 mg PO DAILY Qty: 60 2RF Rx Instructions: take with vitamin C containing food diphenhydramine HCl [Allergy (diphenhydramine)] 25 mg capsule 50 mg PO BID PRN (Reason: allergies) 0RF omeprazole 40 mg capsule,delayed release(DR/EC) 40 mg PO DAILY Qty: 30 6RF Discontinued aspirin 81 mg tablet,delayed release (DR/EC) 81 mg PO DAILY Qty: 60 4RF Rx Instructions: take one tab daily, and two tabs every other day (81 mg/162 mg) ondansetron HCl 4 mg tablet 4 mg PO Q8H PRN (Reason: nausea and vomiting) Qty: 20 1RF Rx Instructions: not taking any longer No Action (DME) Aerochamber Plus Flow-Vu 1 EACH spacer 1 ea Miscellaneous PRN Qty: 1 0RF Rx Instructions: Disp without mask. Use with MDI as directed Discharge Instructions Stand Alone Forms: BC Instructions, BC Post Vaginal Deliver Activity:: Activity as Tolerated Equipment/Supplies:: No Equipment Needed Diet:: As Tolerated Discharge Orders Discharge Orders: Discharge Order (Routine); Ordered 12/27/21 Ordered By: Joana King Procedure Procedures: Other (Nexplanon insertion done prior to discharge, informed consent obtained, skin prepped with alcohol wipe in left upper arm 4 cm from elbow, lidocaine 0.5cc injected and tolerated well, nexplanon inserted, steri strips and gauze pressure dressing applied. Reviewed to keep pressure dressing in place 24h) OB:DS Summary Summary Vaginal Delivery Method: Spontaneaous Episiotomy Description: None Laceration Description: Perineal Laceration Extension: First Degree Contraception Discussed Contraception Discussed: Yes (nexplanon placed see note in procedure tab.KH), [place] Infant Gender-Baby A: Female weight: 8 lb 1.808 oz Status at Discharge Functional status at discharge: independent ambulation Overall status at discharge: patient is back to baseline Mental Status: mental status grossly normal Speech and Movement: speech and movement normal Mood: congruent mood Affect: normal affect Time Spent with Patient providing and/or coordinating discharge services: Less than 30 minutes Hospital Course NVD under epidural analgesia and normal PP course. Nexplanon placed in left arm prior to discharge. KH Exam Physical Exam Vital signs: Temp Pulse Resp BP Pulse Ox 97.7 F 64 18 126/78 98 12/27/21 09:35 12/27/21 09:35 12/27/21 09:35 12/27/21 09:35 12/27/21 09:35 Vital Signs Reviewed: Yes Constitutional Constitutional: no acute distress and average body habitus HEENT Exam HEENT Exam: Normal Breast Exam Bilateral: Breast Exam: Normal Nipple Exam: Normal Respiratory Exam Respiratory Exam: Normal Cardiovascular Exam Cardiovascular Exam: Normal Fundal Exam Fundus: Below Umbilicus and Firm Exam Patient deferred: external exam and perineal exam Extremities Exam Extremity Exam: Normal Skin Exam Skin Exam: Normal Neurological Exam Neurological Exam: Normal Psychiatric Exam Psychiatric Exam: Normal PFSH All Active Problems (Updated 12/27/21 @ 09:31 by Joana King CNM) Lactating mother (Acute) care following vaginal delivery (Acute) Term delivered (Acute) Migraine headache without aura (Acute) BMI 31.0-31.9,adult (Acute) History of depression (Acute) Headache disorder (Acute) Smoker (Acute) Mild intermittent asthma, uncomplicated (Acute 11/07/16) exercise trigger Medical History (Updated 12/27/21 @ 09:31 by Joana King CNM) 39 weeks gestation of Acid indigestion Active labor at term Anemia Asthma Dyslexia Elevated glucose level Encounter for removal of etonogestrel implant False labor after 37 weeks of gestation without delivery History of tachycardia Lightheadedness Spontaneous rupture of amniotic membranes Syncopal episodes Family History Other Stroke grandmother Social History Smoking/Tobacco Use Status: Current every day Tobacco Type: cigarettes Smoking risk assessment performed?: Yes Alcohol Intake: never Drug use: Never Substance use type: does not use Adopted: Yes Do you feel safe at home: Yes Do you feel safe in your relationship?: Yes Female Reproductive History Menstrual control method: implanted History History 1 Para 0 Hx # Term Pregnancies 0 Multiple births 0 Hx # Pregnancies 0 Ectopic pregnancies 0 AB induced 0 Hx Number of Living Children 0 AB spontaneous 0 DS: Data Vitals/I&O Vitals and I&O: Vital Signs Temperature 97.7 F 12/27/21 09:35 Pulse 64 12/27/21 09:35 Pulse Rhythm Regular 12/27/21 07:59 Respiratory Rate 18 12/27/21 09:35 Respiratory Depth Normal 12/27/21 07:59 Blood Pressure 126/78 12/27/21 09:35 Blood Pressure Mean 94 12/27/21 09:35 Pulse Oximetry 98 12/27/21 09:35 Oxygen Delivery Method Room Air 12/25/21 18:00 Oxygen Flow Rate 0 12/25/21 18:00 Pain Level 4 12/27/21 03:08 Data Completed and Pending Labs on day of discharge: Labs from last 24 hours 12/27/21 06:40 WBC 17.26 H D RBC 3.73 L Hgb 10.9 L Hct 34.1 L MCV 91.4 MCH 29.2 MCHC 32.0 RDW 14.1 Plt Count 396 MPV 9.2 Additional Comments Additional comments: Nexplanon Lot [id number], [facility] 28691-312-61, expiration 03/22/24. Placed left arm. 0 QBL, post procedure pain 0. KH
== END 2021-12-27 12:35 | disposition home or self-care (01) | DRG 806 ==
PROVIDERS: Admitting Provider Advanced Practice Midwife; PCP Advanced Practice Midwife; Visit Provider Advanced Practice Midwife
DX: O99.334 Smoking (tobacco) complicating childbirth (principal); O99.354 Diseases of the nervous system complicating childbirth; Z37.0 Single live birth; Z3A.40 40 weeks gestation of pregnancy; O70.0 First degree perineal laceration during delivery; F17.210 Nicotine dependence, cigarettes, uncomplicated; O99.52 Diseases of the respiratory system complicating childbirth; G43.909 Migraine, unspecified, not intractable, without status migrainosus; J45.20 Mild intermittent asthma, uncomplicated
CPT/HCPCS: 36415; 84112; 85027; 87635; J3010

== ENCOUNTER 2022-02-13 15:20 | Outpatient (REF) | payer MEDICAID, SELFPAY ==
--- NOTE | 2022-02-13 14:00 | PAPFT_PTH ---
PATIENT: Daisy Dawkins LOC: [facility] U#:[id number] AGE/SX: 21/F ROOM: RE02/13/[address]: Nina Banda CNM : 2000 BED: DIS: 02/13/2022 SPEC #: [id number] RECD: 02/13/22 17:58 STATUS: LULU MERCADO #: [id number] OTILIA: 02/13/22 14:[address]: Nina Banda DEPT: [facility] Cytology RECD BY: Varsha Araujo Tissues: 1 - CX/ENDOCX FOR PAP SMEARS Procedures: PAP THIN PREP/UVM Screening Comments: [id number]
== END 2022-02-13 15:21 | disposition home or self-care (01) ==
LOC: LBN 15:20
PROVIDERS: PCP Advanced Practice Midwife; Visit Provider Advanced Practice Midwife
DX: Z12.4 Encounter for screening for malignant neoplasm of cervix (principal)
CPT/HCPCS: 88142

== ENCOUNTER 2022-04-29 20:45 | Emergency (ER) | payer MEDICAID, SELFPAY ==
[2022-04-29 20:49] VITALS: BP 131/69; PULSE 75; RESP 18; TEMP 36.7; O2SAT 99
--- NOTE | 2022-04-29 21:20 | ED.GENADUL_ITS ---
Discharge Plan Disposition Patient Disposition: HOME Condition: Stable Discharge Details Clinical Impression: Mild intermittent asthma, uncomplicated Primary Care Provider: Unknown,Unknown ED Provider: Varsha Khan Home Meds and New Rx's Prescriptions: Continued prenat.vits,victor hugo,[id number] Tablet 1 tab PO DAILY ferrous sulfate 325 mg (65 mg iron) tablet,delayed release (DR/EC) 325 mg PO DAILY Qty: 60 2RF Rx Instructions: take with vitamin C containing food diphenhydramine HCl [Allergy (diphenhydramine)] 25 mg capsule 50 mg PO BID PRN (Reason: allergies) (DME) Aerochamber Plus Flow-Vu 1 EACH spacer 1 ea Miscellaneous PRN Qty: 1 0RF Rx Instructions: Disp without mask. Use with MDI as directed albuterol sulfate [ProAir HFA] 90 mcg/actuation HFA aerosol inhaler 2 puff Inhalation Q4H PRN Qty: 1 2RF Rx Instructions: use with spacer Discharge Instructions Instructions: Asthma (ED) Additional Instructions: Use your inhaler as needed for shortness of breath If you carry 1 with you at all times Please return earlier should you have chest pain, fever, chills, or with any new or worsening complaints Discharge Data Discharge Date/Time-TO BE ENTERED AT DEPARTURE: 04/29/22 21:46 Medical Decision Making Patient received albuterol nebulizer treatment feels symptomatically improved, lungs clear to auscultation reassessment Given inhaler and spacer Return precautions discussed and patient expressed understanding Exam consistent with patient's history of asthma Given low threshold to return with new or worsening complaints Medical Records Medical records reviewed: Yes I reviewed the patient's medical records. Lab Data Lab results reviewed: Yes I reviewed the patient's lab results. HPI General Date/Time Provider Initiated Documentation: 04/29/22 20:45 . HPI Narrative: This 21-year-old female here with history of asthma and presents with shortness of breath. History of asthma and forgot to bring her inhaler with her running errands. Denies any chest pain. Reports shortness of breath with wheezing, consistent with her prior episodes of asthma exacerbation. Status post , chest pain or swelling. Denies upper respiratory symptoms aside from typical asthma presentation. States she has seasonal allergies additionally. Related Data Home Medications Medication Instructions Recorded Confirmed inhalational spacing device #1 unit 08/26/17 02/22/22 (Aerochamber Plus Flow-Vu) prenat.vits,victor hugo,[id number] 1 tab PO DAILY 04/26/21 02/22/22 ferrous sulfate 325 mg (65 mg 325 mg PO DAILY #60 tabs 10/12/21 02/22/22 iron) tablet,delayed release diphenhydramine HCl 25 mg capsule 50 mg PO BID PRN allergies 10/25/21 02/22/22 (Allergy (diphenhydramine)) albuterol sulfate 90 mcg/actuation 2 puff inhalation Q4H PRN ##1 03/27/22 aerosol inhaler (ProAir HFA) Previous Rx's Medication Instructions Recorded inhalational spacing device #1 unit 08/26/17 (Aerochamber Plus Flow-Vu) ferrous sulfate 325 mg (65 mg 325 mg PO DAILY #60 tabs 10/12/21 iron) tablet,delayed release albuterol sulfate 90 mcg/actuation 2 puff inhalation Q4H PRN ##1 03/27/22 aerosol inhaler (ProAir HFA) Allergies Allergy/AdvReac Type Severity Reaction Status Date / Time Penicillins Allergy Mild skin rash Verified 02/13/22 13:23 cats AdvReac Mild stuffy/runny Uncoded 01/09/22 11:15 nose/sneezing General Stated Complaint: RespSymp JEREL: 3 Review of Systems All systems reviewed & are unremarkable except as noted in HPI and below PFSH All Active Problems (Updated 04/29/22 @ 21:28 by ELENA Beckett) DUB (dysfunctional uterine bleeding) (Acute) Migraine headache without aura (Acute) BMI 31.0-31.9,adult (Acute) Headache disorder (Acute) Smoker (Acute) Mild intermittent asthma, uncomplicated (Acute 11/07/16) exercise trigger Medical History (Updated 04/29/22 @ 21:28 by ELENA Beckett) Acid indigestion Asthma Dyslexia Encounter for removal of etonogestrel implant History of depression History of tachycardia Lightheadedness Syncopal episodes Family History Other Stroke grandmother Social History Smoking/Tobacco Use Status: Current every day Tobacco Type: cigarettes Smoking risk assessment performed?: Yes Alcohol Intake: never Drug use: Never Substance use type: does not use Adopted: Yes Do you feel safe at home: Yes Do you feel safe in your relationship?: Yes Female Reproductive History Menstrual control method: implanted History History 1 Para 1 Hx # Term Pregnancies 1 Multiple births 0 Hx # Pregnancies 0 Ectopic pregnancies 0 AB induced 0 Hx Number of Living Children 1 AB spontaneous 0 Past Pregnancies Del. Date GA/Weeks # Preg Succ Route Wgt Sex Labor Lgth Anesth esia Location Prov Complic 12/25/21 40 No vaginal 3679.768 g Female 5hrs 57min regional [facility] [place] Delivery Date: 12/25/21 Last Updated by: FLORENCIO Villagran; Exam Const General: cooperative, comfortable and no acute distress Eyes Sclera: sclerae normal Resp Effort & Inspection: normal respiratory effort Auscultation: wheezes Cardio Rate: regular rate Skin General skin exam: no rashes or lesions noted Neuro General: patient alert Course Vital Signs Vital signs: Vital Signs Temperature 36.7 C 04/29/22 20:49 Pulse 75 04/29/22 20:49 Respiratory Rate 18 04/29/22 20:49 Blood Pressure 131/69 04/29/22 20:49 Pulse Oximetry 99 04/29/22 20:49 Temperature 36.7 C 04/29/22 20:49 Pulse 75 04/29/22 20:49 Respiratory Rate 18 04/29/22 20:49 Respiratory Effort Non-Labored 04/29/22 20:52 Blood Pressure 131/69 04/29/22 20:49 Blood Pressure Position Supine 04/29/22 20:49 Pulse Oximetry 99 04/29/22 20:49 Oxygen Delivery Method Room Air 04/29/22 20:49 Oxygen Flow Rate 0 04/29/22 20:49 Pain Level 0 04/29/22 20:49
[2022-04-29] MEDS: Albuterol 2.5 MG/3 ML INH SOLN VIAL UPD (21:21)
[2022-04-29 21:44] VITALS: BP 126/80; PULSE 80; RESP 18; TEMP 37.1; O2SAT 99
[2022-04-29] MEDS: Albuterol HFA 8 GM 60 PUFF INH IH (21:44)
== END 2022-04-29 21:46 | disposition home or self-care (01) ==
PROVIDERS: Emergency Provider Physician Assistant
DX: J45.20 Mild intermittent asthma, uncomplicated (principal)
CPT/HCPCS: 94640; 99283; J7613

== ENCOUNTER 2023-09-06 16:31 | Outpatient (CLI) | payer MEDICAID, SELFPAY ==
[2023-09-11 21:52] LABS: Cat Epithelium IgE 0.24 kU/L (<0.70); Cladosporium IgE <0.10 kU/L (<0.70); Dog Dander IgE 1.79 kU/L (<0.70)
[2023-09-11 22:22] LABS: Alternaria Tenuis IgE <0.10 kU/L (<0.70); Aspergillus Fumigatus IgE <0.10 kU/L (<0.70); Bermuda Grass IgE <0.10 kU/L (<0.70); Cocklebur IgE <0.10 kU/L (<0.70); Cockroach IgE 0.14 kU/L (<0.70); Cottonwood IgE <0.10 kU/L (<0.70); D Farinae IgE 22.7 kU/L (<0.70); D Pteronyssinus IgE 33.2 kU/L (<0.70); Eastern Sycamore IgE <0.10 kU/L (<0.70); Elm IgE <0.10 kU/L (<0.70); Fusarium moniliforme, IgE <0.10 kU/L (<0.70); Giant Ragweed IgE <0.10 kU/L (<0.70); Lamb's Quarter IgE <0.10 kU/L (<0.70); Oak IgE 0.98 kU/L (<0.70); Penicillium chrysogenum IgE <0.10 kU/L (<0.70); Red Sorrel IgE <0.10 kU/L (<0.70); Rough Pigweed IgE <0.10 kU/L (<0.70); Short Ragweed IgE <0.10 kU/L (<0.70); Silver Birch IgE 1.14 kU/L (<0.70); Stemphyllium IgE <0.10 kU/L (<0.70); Timothy Grass IgE <0.10 kU/L (<0.70); Walnut Tree IgE <0.10 kU/L (<0.70); Wormwood IgE <0.10 kU/L (<0.70)
[2023-09-11 22:54] LABS: Epicoccum purpurascens IgE <0.10 kU/L (<0.70)
[2023-09-17 12:28] LABS: CLASS 0; Cedar Red IgE <0.10 kU/L (<0.35)
[2023-09-17 12:37] LABS: CLASS 0; Rhodotorula IgE <0.35 kU/L (<0.35)
== END 2023-09-06 16:32 | disposition home or self-care (01) ==
LOC: LBO 16:32
PROVIDERS: Visit Provider Physician Assistant
DX: J45.40 Moderate persistent asthma, uncomplicated (principal); Z91.09 Other allergy status, other than to drugs and biological substances
CPT/HCPCS: 36415; 86003

== ENCOUNTER 2024-08-14 14:48 | Outpatient (CLI) | payer MEDICAID, SELFPAY ==
[2024-08-14 14:53] LABS: Panorama Kit Sent via Fed Ex
[2024-08-17 10:01] LABS: Hepatitis C Ab w Rflx HCV PCR Negative (Negative)
[2024-08-17 11:18] LABS: Varicella IgG Antibody Positive (See Note)
== END 2024-08-14 14:49 | disposition home or self-care (01) ==
LOC: LBO 14:49
PROVIDERS: Visit Provider Advanced Practice Midwife
DX: Z34.91 Encounter for supervision of normal pregnancy, unspecified, first trimester (principal)
CPT/HCPCS: 36415; 86787; 86803

== ENCOUNTER 2024-08-21 02:57 | Outpatient (CLI) | payer MEDICAID, SELFPAY ==
[2024-08-21 14:49] LABS: Glucose,1 Hr (Glucola) 90 mg/dL (80-140)
== END 2024-08-21 02:58 | disposition home or self-care (01) ==
LOC: LBO 02:58
PROVIDERS: Visit Provider Advanced Practice Midwife
DX: Z68.31 Body mass index [BMI] 31.0-31.9, adult (principal); Z34.91 Encounter for supervision of normal pregnancy, unspecified, first trimester
CPT/HCPCS: 36415; 82950

== ENCOUNTER 2024-10-14 01:44 | Outpatient (CLI) | payer MEDICAID, SELFPAY ==
--- NOTE | 2024-10-14 07:30 | DI.US_ITS ---
Exam(s) US OB 2-3 TRIMESTER EXAM: US OB 2-3 TRIMESTER CLINICAL HISTORY: survey,z34.90. TECHNIQUE: Transabdominal obstetrical ultrasound performed. COMPARISON: No exams were available for comparison FINDINGS: Number of fetuses: 1 position: VARIED heart rate: 148 bpm Placental location: POSTERIOR No evidence of previa. BIOMETRIC DATA: BPD: 4.6 cm, 19+ 6 weeks HC: 17.76 cm, 20+ 2 weeks AC: 15.66 cm, 20+ 6 weeks FL: 3.38 cm, 20+ 4 weeks Cisterna magna: 4.3 mm Cerebellum: 1.94 cm Lateral ventricle: 5.9 millimeters EFW: 367.28 g, 0.81 lb, 48.9 % Composite Age: 20+ 3 weeks MIL: 28 February 2025 Heart Rate: 148 bpm Amniotic fluid : Amount of fluid is visually within normal limits. ANATOMICAL SURVEY: Four-chambered heart: Unremarkable. LVOT: Unremarkable. RVOT: Unremarkable. Left-sided stomach: Unremarkable. urinary bladder: Unremarkable. Bilateral kidneys: Unremarkable. Three-vessel cord: Unremarkable. Cord insertion: Unremarkable. Posterior fossa:Unremarkable. ventricles: Unremarkable. nose: Unremarkable. lips: Unremarkable. palate: Unremarkable. spine: Unremarkable. Two arms and two legs: Unremarkable. IMPRESSION: 1. Single live intrauterine gestation with composite age of 20 weeks 3 days. 2. Normal anatomic survey. DATA REPOSITORY:
== END 2024-10-14 02:04 ==
PROVIDERS: PCP Physician Assistant; Visit Provider Advanced Practice Midwife
DX: Z34.92 Encounter for supervision of normal pregnancy, unspecified, second trimester (principal); Z3A.20 20 weeks gestation of pregnancy
CPT/HCPCS: 76805

== ENCOUNTER 2024-12-11 00:38 | Outpatient (CLI) | payer MEDICAID, SELFPAY ==
[2024-12-11 14:03] LABS: HCT 36.8 % (36.0-46.0); HGB 12.2 g/dL (11.2-15.7); MCH 29.9 pg (27.0-33.0); MCHC 33.2 % (32.0-36.0); MCV 90 fL (80-95); MPV 8.7 fL (8.0-11.0); Platelet Count 366 10^3/uL (130-400); RBC 4.08 10^6/uL (3.93-5.22); RDW 13.6 % (11.7-14.6); RDW-SD 44.7 fL; WBC 15.69 10^3/uL (4.4-10.8)
[2024-12-11 14:14] LABS: Glucose,1 Hr (Glucola) 144 mg/dL (80-140)
== END 2024-12-11 00:39 | disposition home or self-care (01) ==
PROVIDERS: PCP Physician Assistant; Visit Provider Advanced Practice Midwife
DX: Z34.92 Encounter for supervision of normal pregnancy, unspecified, second trimester (principal)
CPT/HCPCS: 36415; 82950; 85027

== ENCOUNTER 2024-12-11 20:38 | Outpatient (REF) | payer MEDICAID, SELFPAY ==
[2024-12-11 15:48] LABS: *AMPHETAMINES SCREEN URINE Negative (Negative); *BARBITURATES SCREEN URINE Negative (Negative); *BENZODIAZEPINES SCREEN URINE Negative (Negative); Cannabinoids THC Negative (Negative); Cocaine Screen,Urine Negative (Negative); METHADONE URINE SCREEN Negative (Negative); OPIATES URINE SCREEN Negative (Negative)
[2024-12-11 15:50] LABS: Tricyclic Antidepressants Negative (Negative)
[2024-12-13 17:19] LABS: Fentanyl Scr w/Rfx Confirm Negative ng/mL (<1)
[2024-12-18 09:43] LABS: Buprenorphine Negative ng/mL (Cutoff: 5.0)
== END 2024-12-11 20:39 | disposition home or self-care (01) ==
LOC: LBN 20:38
PROVIDERS: PCP Physician Assistant; Visit Provider Advanced Practice Midwife
DX: Z81.3 Family history of other psychoactive substance abuse and dependence (principal); Z34.93 Encounter for supervision of normal pregnancy, unspecified, third trimester; Z79.891 Long term (current) use of opiate analgesic; Z3A.28 28 weeks gestation of pregnancy
CPT/HCPCS: 80307; 80348

== ENCOUNTER 2024-12-17 01:50 | Outpatient (CLI) | payer MEDICAID, SELFPAY ==
[2024-12-17 11:35] LABS: Glucose 1 Hour 169 mg/dL
[2024-12-17 13:17] LABS: Glucose 3 Hour 105 mg/dL
== END 2024-12-17 01:51 | disposition home or self-care (01) ==
LOC: LBO 01:51
PROVIDERS: PCP Physician Assistant; Visit Provider Advanced Practice Midwife
DX: Z34.90 Encounter for supervision of normal pregnancy, unspecified, unspecified trimester (principal); R73.09 Other abnormal glucose
CPT/HCPCS: 36415; 82951

== ENCOUNTER 2025-01-29 00:13 | Outpatient (CLI) | payer MEDICAID, SELFPAY ==
--- NOTE | 2025-01-29 07:00 | DI.US_ITS ---
Exam(s) US OB PETRA WEIGHT EXAM: US OB PETRA WEIGHT CLINICAL HISTORY: size greater than dates,z34.90. TECHNIQUE: Transabdominal obstetrical ultrasound performed. COMPARISON: No exams were available for comparison FINDINGS:: Number of fetuses: 1 position: CEPHALIC Placental location: FUNDAL No evidence of previa. BIOMETRIC DATA: BPD: 8.96cm, 36weeks 2days HC: 32.95cm, 37weeks 3days AC: 32.7cm, 36weeks 4days FL: 6.9cm, 35weeks 3days EFW: 2,919.8g, 6lb 7.65oz, 65.1% Composite Age: 36weeks 3days MIL: 02/23/2025 Heart Rate: 167bpm Amniotic fluid index: 18.44cm. Visually, amount of fluid is within normal limits. Number of fetuses: 1 position: CEPHALIC heart rate: 167bpm Placental location: FUNDAL No evidence of previa. IMPRESSION: size and weight are within the expected range. DATA REPOSITORY:
== END 2025-01-29 00:33 ==
LOC: DI 00:13
PROVIDERS: PCP Physician Assistant; Visit Provider Advanced Practice Midwife
DX: Z34.93 Encounter for supervision of normal pregnancy, unspecified, third trimester (principal); Z3A.36 36 weeks gestation of pregnancy
CPT/HCPCS: 76816

== ENCOUNTER 2025-01-29 14:21 | Outpatient (REF) | payer MEDICAID, SELFPAY | END 2025-01-29 14:22 | disposition home or self-care (01) | LOC: LBN 14:21 | PROVIDERS: PCP Physician Assistant; Visit Provider Advanced Practice Midwife | DX: Z34.93 Encounter for supervision of normal pregnancy, unspecified, third trimester (principal) | CPT/HCPCS: 87081 ==

== ENCOUNTER 2025-02-19 15:33 | Outpatient (CLI) | payer MEDICAID, SELFPAY ==
[2025-02-19 15:50] VITALS: BP 133/81; PULSE 86; TEMP 36.7
[2025-02-19 16:52] LABS: HCT 35.7 % (36.0-46.0); HGB 11.6 g/dL (11.2-15.7); MCH 28.5 pg (27.0-33.0); MCHC 32.5 % (32.0-36.0); MCV 88 fL (80-95); MPV 9.1 fL (8.0-11.0); Platelet Count 423 10^3/uL (130-400); RBC 4.07 10^6/uL (3.93-5.22); RDW 14.9 % (11.7-14.6); WBC 15.01 10^3/uL (4.4-10.8)
[2025-02-19 17:07] LABS: PROTEIN 43.1 mg/dL
[2025-02-19 17:09] LABS: ALT 12 U/L (14-59); AST 10 U/L (15-37); Albumin 2.3 g/dL (3.4-5.0); Alkaline Phosphatase 170 U/L (46-116); Anion Gap 10.8 mmol/L (3-11); BUN 7 mg/dL (7-18); Bilirubin, Total 0.2 mg/dL (0.2-1.0); CO2 22.2 mmol/L (21.0-32.0); CREATININE 0.9 mg/dL (0.55-1.02); Calcium 8.7 mg/dL (8.5-10.1); Chloride 106 mmol/L (98-107); Estimated GFR 91.55 (mL/min/1.73m2); Glucose 97 mg/dL (74-106); Sodium 139 mmol/L (136-145); Total Protein 6.5 g/dL (6.4-8.2)
--- NOTE | 2025-02-21 17:45 | W.OBNST ---
Date of service: 02/19/25 Time of Service: 15:00 NST Evaluation Reason for NST Reasons for Nonstress Test: OTHER, SEE COMMENT Reason for NST Other: R/o Pre-Eclampsia Gestational Age Gestational Age in Weeks and Days: 39 Weeks and 0Days Test and Monitor Explained Test/Monitor Explained: Test Explained, Monitor Explained and Patient Verbalized Understanding Vital Signs Blood Pressure: 133/81 Pulse: 86 Temperature: 98.1 F Urine Results Urine Protein: Positive Urine Ketones: Positive Urine Glucose: Negative Urine Blood: Negative NST Information Date on Monitor: 02/19/25 Time on Monitor: 15:20 Date off Monitor: 02/19/25 Time off Monitor: 15:50 Total Time on Monitor: 30 NST Interventions: None Contraction Frequency: 4/6 NST Evaluation Patient States Movement: Present FHR Baseline: 145 Variability: Moderate 6-25 bpm Accelerations: 15x15 Decelerations: None NST Results: Reactive Note Ultrasound Done: N/A. NST Note Note: at 38w6d with first elevated BP of 137/90, repeat normal. PIH labs pending, PE normal, reactive NST. Discussed dx gHTN vs Precclampsia vs gestational proteinuria. Will call patient with lab results and make a plan of care from there. All questions answered. discharged to home in stable condition. NST Reviewed and Verified by: Fabiola Macario
[2025-02-21 17:48] VITALS: BP 133/81; PULSE 86; TEMP 36.7
== END 2025-02-19 16:58 ==
LOC: BCD 15:34 → OBS 15:39
PROVIDERS: PCP Physician Assistant; Visit Provider Advanced Practice Midwife
DX: O99.891 Other specified diseases and conditions complicating pregnancy (principal); R03.0 Elevated blood-pressure reading, without diagnosis of hypertension; Z3A.39 39 weeks gestation of pregnancy
CPT/HCPCS: 36415; 80053; 85027; 82565; 84156

== ENCOUNTER 2025-02-20 18:49 | Outpatient (CLI) | payer MEDICAID, SELFPAY ==
[2025-02-20 20:03] VITALS: BP 123/86; PULSE 83; TEMP 36.8
[2025-02-20 20:14] VITALS: BP 123/86; PULSE 83
--- NOTE | 2025-02-20 20:38 | W.OBNST ---
Date of service: 02/20/25 Time of Service: 20:38 NST Evaluation Reason for NST Reasons for Nonstress Test: OTHER, SEE COMMENT Reason for NST Other: elevated protein creatin ratio Gestational Age Gestational Age in Weeks and Days: 39 Weeks and 0Days Test and Monitor Explained Test/Monitor Explained: Test Explained, Monitor Explained and Patient Verbalized Understanding Vital Signs Blood Pressure: 123/86 Pulse: 83 Temperature: 98.2 F NST Information Date on Monitor: 02/20/25 Time on Monitor: 19:51 Date off Monitor: 02/20/25 Time off Monitor: 20:28 Total Time on Monitor: 37 NST Interventions: PO Hydration NST Evaluation Patient States Movement: Present FHR Baseline: 145 Variability: Moderate 6-25 bpm Accelerations: 15x15 Decelerations: None NST Results: Reactive Note Ultrasound Done: N/A. NST Note Note: at 39wk here for NST and BP check. Possible early labor, contractions mild q 7-12min. Reactive NST, Normotensive, 24hr urine ordered and collection kit given. POC reviewed with Dr. Marquez. Plan to check in with patient tomorrow regarding labor, if not in labor plan NST with Saturday scheduled visit. IOL if one additional mild range BP. Pt aware, all questions answered. D/C to home in stable condition. NST Reviewed and Verified by: Fabiola Macario
[2025-02-20 20:40] VITALS: BP 123/86; PULSE 83; TEMP 36.8
== END 2025-02-20 20:38 ==
LOC: BCD 19:01 → OBS 20:02
PROVIDERS: PCP Physician Assistant; Visit Provider Advanced Practice Midwife
DX: Z3A.39 39 weeks gestation of pregnancy (principal); O13.3 Gestational [pregnancy-induced] hypertension without significant proteinuria, third trimester
CPT/HCPCS: 59025

== ENCOUNTER 2025-02-23 13:32 | Inpatient (IN) | payer MEDICAID, SELFPAY ==
[2025-02-23] VITALS (31 sets, daily range): BP systolic 112–139; BP diastolic 69–93; PULSE 72–127; RESP 16–18; TEMP 37.1; O2SAT 94–99; BMI 33.5
--- NOTE | 2025-02-23 13:27 | HPE_ITS ---
Date of service: 02/23/25 Time of Service: 13:27 Assessment and Plan Assessment and plan (1) Normal labor: Status: Acute Assessment and plan: A: 24 yo @ 39+3 wks, spontaneous onset of active labor GBS negative, low risk for SD or PPH, category 1 tracing One isolated diastolic BP of 90 four days ago, f/up BP's nml, CMP nml and u-pr/cr borderline @ 0.3, repeat labs planned for tomorrow Desires epidural P: Admit to L&D, start IV, draw CBC, T&S, CMP and repeat urine pr/cr Nsng phlebotomist supervisor/instructor informed of pt desire for anesthesia, will page [employer]ING EXAMINER Anticipate OB-HPI Labor/Delivery History of Present Illness Reason for Visit: R/O Chief Complaint: Uterine Contractions (since 0900, now very strong, no bleeding, no ROM). MIL Calculator Estimated Delivery Date Method Current WG Current Estimate 02/27/25 LMP (Certain) 39w 3d Other Estimates 02/27/25 Ultrasound #1 39w 3d History of Present Expected Delivery Route/Plan - CNM FOB/partner - Agus Brown (2nd child together, 3rd of his) [facility] Eventual epidural, IV meds ok GBS negative Specific Issues/Plan 1. Started PNC at [facility], [place], had dating scan 07/10 & initial labs 07/20/24 1a. AB+, Rubella Immune, Hep B neg, HIV neg, RPR neg, CT/GC neg, UDS neg. 2. cfDNA low risk female, known CF carrier screen negative 3. 5P screen+, initial UDS neg @ [facility], 28 wks- neg 4. Hx bipolar and depression and post depression, no meds currently, declines [facility] referral, PHQ9 score=2 5. BMI 32, early glucola=90, 28 wk wetrhmi=831, 3 hr GTT=nml x4 6. Constipation and heartburn, colace as needed, protonix. 7. History of tobacco use, vaping 5% nicotine 8. Size > Dates. US 36 weeks 65th percentile, PETRA 18. 9. Mild anemia at 36 wks, will start oral iron supplement 10. Tooth infection - treated with Clindamycin 02/17/25 Assessment: History Reviewed & Current Informed Consent Informed Consent: Regional Anesthesia and Risk,Benefits,Alternatives Discussed Review of Systems Narrative: ROS completed and found to be noncontributory other than HPI PFSH All Active Problems Normal labor (Acute) Gestational proteinuria (Acute) Fundal height high for dates (Acute) Elevated glucose level (Acute) (Acute) Generalized anxiety disorder (Acute) Bipolar 1 disorder with moderate raiza (Acute) BMI 31.0-31.9,adult (Acute) Smoker (Acute) vaping Medical History (Updated 02/23/25 @ 13:32 by Nina Banda) Adopted person Multiple environmental allergies Mild intermittent asthma, uncomplicated (11/07/16) exercise trigger Migraine headache without aura Family history of drug abuse Gastro-esophageal reflux disease without esophagitis Cholelithiasis Post depression Headache disorder History of concussion sports and walked into a pole. Asthma, moderate persistent DUB (dysfunctional uterine bleeding) Cholecystolithiasis Dysmenorrhea Syncopal episodes History of tachycardia History of depression Dyslexia Encounter for removal of etonogestrel implant Family History Other Stroke grandmother Social History Smoking/Tobacco Use Status: Current every day Tobacco Type: e-cigarettes Smoking risk assessment performed?: Yes Alcohol Intake: never Drug use: Never Substance use type: does not use Adopted: Yes Housing: apartment Do you feel safe at home: Yes Do you feel safe in your relationship?: Yes Female Reproductive History Menstrual Age of Menarche: 14 control method: none History History 2 Para 1 Hx # Term Pregnancies 1 Multiple births 0 Hx # Pregnancies 0 Ectopic pregnancies 0 AB induced 0 Hx Number of Living Children 1 AB spontaneous 0 Past Pregnancies Del. Date GA/Weeks # Preg Succ Route Wgt Sex Labor Lgth Anesth esia Location Prov Complic 12/25/21 39 No Yes vaginal 8 lb 1.8 oz Female 5hrs 57min regional [facility] [place] Delivery Date: 12/25/21 Last Updated by: FLORENCIO Villagran; Meds Allergies and Home Medications Allergies Allergy/AdvReac Type Severity Reaction Status Date / Time Penicillins Allergy Mild skin rash Verified 02/19/25 14:58 cats AdvReac Mild stuffy/runny Uncoded 02/10/25 14:03 nose/sneezing Home Medications ?Medication ?Instructions ?Recorded ?Confirmed ?Type inhalational spacing device #1 unit 08/26/17 02/19/25 Rx (Aerochamber Plus Flow-Vu) diphenhydramine HCl 25 mg capsule 50 mg PO BID PRN allergies 10/25/21 02/19/25 History (Allergy (diphenhydramine)) albuterol sulfate 90 mcg/actuation 2 puff inhalation Q4H PRN ##1 03/27/22 02/19/25 Rx aerosol inhaler (ProAir HFA) cetirizine 10 mg tablet (Zyrtec) 10 mg PO DAILY #30 tabs 09/13/23 02/19/25 Rx vitamins no.119-iron tab PO 08/14/24 02/19/25 History fumarate 29 mg-folic acid 1 mg tablet famotidine 20 mg tablet 20 mg PO DAILY #90 tabs 10/14/24 02/19/25 Rx cholecalciferol (vitamin D3) 50 50 mcg PO DAILY #90 caps 11/13/24 02/19/25 Rx mcg (2,000 unit) capsule ondansetron 4 mg disintegrating 4 mg PO Q6H PRN nausea and 11/13/24 02/19/25 Rx tablet vomiting #14 tabs pantoprazole 40 mg tablet,delayed 40 mg PO DAILY #30 tabs 11/13/24 02/19/25 Rx release (Protonix) vitamin with calcium 1 tab PO DAILY #90 tabs 11/13/24 02/19/25 Rx no.72-iron 27 mg-folic acid 1 mg tablet docusate sodium 100 mg capsule 100 mg PO BID #60 caps 12/11/24 02/19/25 Rx (Colace) ferrous sulfate 325 mg (65 mg 325 mg PO DAILY #60 tabs 01/29/25 02/19/25 Rx iron) tablet gihoxiovgt-cotrfgwgmrigf-yoxdvjab 1 cap PO Q8H PRN pain #7 caps 02/19/25 02/19/25 Rx 50 mg-300 mg-40 mg capsule (Fioricet) Exam Physical Exam Vital Signs Reviewed: Yes Constitutional Constitutional: moderate distress, average body habitus and cooperative Detailed Labor and Delivery Exam Dilation: 7 Effacement (%): 100 station: -1 Cervix position: anterior Consistency: soft Amniotic Membrane Status: Intact (bulging forebag) Contraction Frequency(min): q2-3 Contraction Intensity: Moderate/Strong Fetus A Heart Rate Baseline: 140 Monitor Accelerations: 15 X 15 Monitor Decelerations: None Variability: Moderate (6-25 BPM) Categories: Category I Est. Weight: 7 lb 14.986 oz Est. Weight: 3600 gms HEENT Exam HEENT Exam: Normal Neck Exam Neck Exam: Normal Chest/Brest/Axilla Exam Chest Exam: Normal Breast Exam Breast Exam: Not Done Respiratory Exam Respiratory Exam: Normal Cardiovascular Exam Cardiovascular Exam: Normal Abdominal Exam Abdominal Exam: Normal (gravid, nontender) Rectal Exam Rectal Exam: Normal Exam Exam: Normal Extremities Exam Extremities Exam: Normal Back/Spine/Pelvis Exam Back Exam: Normal Pelvis Adequate: Yes (proven to 8'2) Skin Exam Skin Exam: Normal Neurological Exam Neurological Exam: Normal Psychiatric Exam Psychiatric Exam: Normal Results Results Group Beta Strep: Negative Blood Type: AB+ Rubella Status: Immune Varicella Immunity: Immune Risk Assessment Risk for Shoulder Dystocia Historical/Initial OB: POSITIVE FOR: Pre- BMI>30; NEGATIVE FOR: Pelvic Abnormality, Previous Shoulder Dystocia or Previous Macrosomia 36 Weeks: NEGATIVE FOR: Current Gestational DM, EFW>4500gms or Maternal Weight Gain>40lbs Increased Risk?: No Delivery Plan @ 36wks: Risk for Pre-Eclampsia Date Initiated/Initials: not indicated, jk Yes, if one or more: NEGATIVE FOR: Hx Pre-E/Gest HTN, Chronic HTN, Multiple Gestation, Pre-gestational DM, Renal Disease, Systemic Lupus or APA Syndrome Yes, if 2 or more: POSITIVE FOR: BMI>30; NEGATIVE FOR: Nulliparity, Age>= 35 yrs, >10yr btwn pregnancies, ethinicty, Mother/Sister w/ Pre-E or Previous IUGR Risk for Post- Hemorrhage Initial: NEGATIVE FOR: Multiple Gestation, Previous PPH, Known Clotting Deficiency, Grand Multiparity or Anticoagulation 36 Weeks: NEGATIVE FOR: Anemia, hgb<10, Low platelets(thrombocytopenia), Gestational HTN or Pre-E, Polyhydraminios or EFW>4500gms At Risk?: No Counseled re: Active Management: Yes Risks Reviewed Risks Reviewed Upon Admission: Yes
[2025-02-23 14:05] LABS: HCT 37.2 % (36.0-46.0); HGB 12.1 g/dL (11.2-15.7); MCH 28.3 pg (27.0-33.0); MCHC 32.5 % (32.0-36.0); MCV 87 fL (80-95); MPV 9.1 fL (8.0-11.0); Platelet Count 395 10^3/uL (130-400); RBC 4.28 10^6/uL (3.93-5.22); RDW-SD 46.5 fL; WBC 16.65 10^3/uL (4.4-10.8)
--- NOTE | 2025-02-23 14:10 | ANES.PREOP_ITS ---
General Info Date of Service Date Performed: 02/23/25 Height: 5 ft 7 in Weight: 97.069 kg Body Mass Index (BMI): 33.5 Meds Allergies and Home Medications Allergies Allergy/AdvReac Type Severity Reaction Status Date / Time Penicillins Allergy Mild skin rash Verified 02/19/25 14:58 cats AdvReac Mild stuffy/runny Uncoded 02/10/25 14:03 nose/sneezing Home Medication ?Medication ?Instructions ?Recorded inhalational spacing device #1 unit 08/26/17 (Aerochamber Plus Flow-Vu) diphenhydramine HCl 25 mg capsule 50 mg PO BID PRN allergies 10/25/21 (Allergy (diphenhydramine)) albuterol sulfate 90 mcg/actuation 2 puff inhalation Q4H PRN ##1 03/27/22 aerosol inhaler (ProAir HFA) cetirizine 10 mg tablet (Zyrtec) 10 mg PO DAILY #30 tabs 09/13/23 vitamins no.119-iron tab PO 08/14/24 fumarate 29 mg-folic acid 1 mg tablet famotidine 20 mg tablet 20 mg PO DAILY #90 tabs 10/14/24 cholecalciferol (vitamin D3) 50 50 mcg PO DAILY #90 caps 11/13/24 mcg (2,000 unit) capsule ondansetron 4 mg disintegrating 4 mg PO Q6H PRN nausea and 11/13/24 tablet vomiting #14 tabs pantoprazole 40 mg tablet,delayed 40 mg PO DAILY #30 tabs 11/13/24 release (Protonix) vitamin with calcium 1 tab PO DAILY #90 tabs 11/13/24 no.72-iron 27 mg-folic acid 1 mg tablet docusate sodium 100 mg capsule 100 mg PO BID #60 caps 12/11/24 (Colace) ferrous sulfate 325 mg (65 mg 325 mg PO DAILY #60 tabs 01/29/25 iron) tablet obupicvgiz-arqhkvtrkjyoq-jcfegwqe 1 cap PO Q8H PRN pain #7 caps 02/19/25 50 mg-300 mg-40 mg capsule (Fioricet) Current Visit Medications: Current Medications Generic Name Dose Route Start Last Admin Trade Name Freq PRN Reason Stop Dose Admin Ephedrine Sulfate 5 mg 02/23/25 14:53 Ephedrine 50 Mg/Ml Vial IVP DIRECTED PRN Fentanyl/Ropivacaine 200 ml 02/23/25 15:00 Fentanyl/Ropivacaine 2 Mcg/Ml And 0.1% 200 Ml [place] EP DIRECTED [facility] Ringer's Solution 250 mls @ 500 mls/hr 02/23/25 14:53 IV BOLUS PRN Blood Pressure Naloxone HCl 2 mg/ Sodium 500 mls @ 12.134 mls/hr 02/23/25 14:53 Chloride IV INFUSION PRN pruritis 0.5 MCG/KG/HR IV Miscellaneous Supplies 1 each 02/23/25 13:30 Iv Access IV DIRECTED LUIZA Naloxone HCl 0 mg 02/23/25 14:53 Naloxone 0.4 Mg/Ml Vial IVP DIRECTED PRN Naloxone HCl 0.04 mg 02/23/25 14:53 Naloxone 0.4 Mg/Ml Vial IVP PRN PRN PRURITIS Sodium Chloride 0 ml 02/23/25 13:26 Normal Saline Flush 10 Ml Syr IVP PRN PRN Sodium Chloride 0 ml 02/23/25 20:00 Normal Saline Flush 10 Ml Syr IVP BID LUIZA Sodium Chloride 0 ml 02/23/25 13:26 Normal Saline 10 Ml Vial IJ DIRECTED PRN PFSH Active Problems Active Problems: Problem Status Onset Code Normal labor Acute O80, Z37.9 Gestational proteinuria Acute O12.10 Fundal height high for dates Acute Z34.90 Elevated glucose level Acute R73.09 Acute Z34.90 Generalized anxiety disorder Acute F41.1 Bipolar 1 disorder with moderate raiza Acute F31.12 BMI 31.0-31.9,adult Acute Z68.31 Smoker Acute F17.200 Medical History Medical History (Updated 02/23/25 @ 13:32 by Nina Banda) Adopted person Multiple environmental allergies Mild intermittent asthma, uncomplicated (11/07/16) exercise trigger Migraine headache without aura Family history of drug abuse Gastro-esophageal reflux disease without esophagitis Cholelithiasis Post depression Headache disorder History of concussion sports and walked into a pole. Asthma, moderate persistent DUB (dysfunctional uterine bleeding) Cholecystolithiasis Dysmenorrhea Syncopal episodes History of tachycardia History of depression Dyslexia Encounter for removal of etonogestrel implant Tobacco Smoking/Tobacco Use Status: Current every day Tobacco Type: e-cigarettes Alcohol Alcohol Intake: never Substance Use Substance use: Never Substance use type: does not use Prental History History 2 2 Para 1 Hx # Term Pregnancies 1 Multiple births 0 Hx # Pregnancies 0 Ectopic pregnancies 0 AB induced 0 Hx Number of Living Children 1 AB spontaneous 0 Past Pregnancies Del. Date GA/Weeks # Preg Succ Route Wgt Sex Labor Lgth Anesth esia Location [facility] 12/25/21 39 No Yes vaginal 3679.768 g Female 5hrs 57min ag [place] CNM Delivery Date: 12/25/21 Last Updated by: FLORENCIO Villagran; Vital Signs and Lab Results Vital Signs Most Recent Vital Signs in EMR: Most Recent Vital Signs Pulse BP Pulse Ox 75 112/70 94 02/23/25 15:18 02/23/25 15:18 02/23/25 14:28 Lab Results 02/23/25 13:51 02/23/25 13:51 Blood Type / Crossmatch: 2 Antibody Screen NEGATIVE 02/23/25 Complete Blood Count: 2 White Blood Count 16.65 10^3/uL (4.4-10.8) H 02/23/25 13:51 Red Blood Count 4.28 10^6/uL (3.93-5.22) 02/23/25 13:51 Hemoglobin 12.1 g/dL (11.2-15.7) 02/23/25 13:51 Hematocrit 37.2 % (36.0-46.0) 02/23/25 13:51 Platelet Count 395 10^3/uL (130-400) 02/23/25 13:51 Complete Metabolic Panel: 2 Sodium 140 mmol/L (136-145) 02/23/25 13:51 Potassium 4.0 mmol/L (3.5-5.1) 02/23/25 13:51 Chloride 107 mmol/L (98-107) 02/23/25 13:51 Carbon Dioxide 23.7 mmol/L (21.0-32.0) 02/23/25 13:51 BUN 8 mg/dL (7-18) 02/23/25 13:51 Creatinine 1.0 mg/dL (0.55-1.02) 02/23/25 13:51 Est GFR (CKD-EPI 2020) 80.68 (mL/min/1.73m2) 02/23/25 13:51 Calcium 9.7 mg/dL (8.5-10.1) 02/23/25 13:51 Albumin 2.5 g/dL (3.4-5.0) L 02/23/25 13:51 Glucose 87 mg/dL (74-106) 02/23/25 13:51 Liver Function Panel: 2 Alanine Aminotransferase (ALT/SGPT) 11 U/L (14-59) L 02/23/25 1 3:51 Aspartate Amino Transf (AST/SGOT) 11 U/L (15-37) L 02/23/25 13: 51 Coagulation Panel: 2 No Data to Display Cardiac Panel: 2 No Data to Display Arterial Blood Gas: 2 No Data to Display Venous Blood Gas: 2 No Data to Display Pancreas Panel: 2 No Data to Display Thyroid Panel: 2 No Data to Display Infectious Disease: 2 No Data to Display Blood Cultures: 2 No Data to Display Toxicology Panel: 2 No Data to Display Panel: 2 No Data to Display Anesthesia Assessment and Plan Anesthesia History Personal History: No History of Anesthesia Complications Family History: No Family History of Anesthesia Complications Exercise Tolerance Exercise Tolerance: Metabolic Equivalents>4 Cardiac & Pulmonary Exam Cardiac Exam: Normal S1/S2 Heart Sounds Pulmonary Exam: Clear Bilateral Breath Sounds Implantable Cardiac Device Does patient have a Pacemaker or an ICD?: No Airway Exam Known Difficult Airway: No Mallampati Class: 2 Mouth Opening: Normal (> 3cm) Thyromental Distance: Greater than 3 cm Neck Range of Motion: Full ROM Neck Circumference: Normal Teeth Condition: Normal Dentition (Tongue ring in place) ASA Classification ASA Score: ASA 2 Emergency Case?: No NPO Status NPO Status: Full Stomach Status Status: Confirmed Anesthesia Plan Resuscitation Status: Full Code Anesthesia Technique: Epidural Anesthesia Airway Planned: Natural Airway Pain Management: Epidural Monitors Used: Standard Monitors Preoperative Comments:: Plt WML + asthma - HTN.
[2025-02-23 14:25] LABS: ALT 11 U/L (14-59); AST 11 U/L (15-37); Albumin 2.5 g/dL (3.4-5.0); Alkaline Phosphatase 190 U/L (46-116); Anion Gap 9.3 mmol/L (3-11); BUN 8 mg/dL (7-18); Bilirubin, Total 0.3 mg/dL (0.2-1.0); CO2 23.7 mmol/L (21.0-32.0); Calcium 9.7 mg/dL (8.5-10.1); Chloride 107 mmol/L (98-107); Estimated GFR 80.68 (mL/min/1.73m2); Glucose 87 mg/dL (74-106); Sodium 140 mmol/L (136-145); Total Protein 6.8 g/dL (6.4-8.2)
--- NOTE | 2025-02-23 14:53 | W.ANESNEU ---
Epidural/Spinal Catheter Date Performed: 02/23/25 Procedure Start: 14:14 Procedure Stop: 14:24 Requesting Provider: Nina Banda Procedure Location: Obstetrics Reason Performed: Labor Epidural Standard Monitors Applied: Blood Pressure and SpO2 Patient Position: Sitting Sedation Given (Indicate Dose Given): No Sedation given Patient Mental Status: Awake Sterility: Hand Hygiene, Surgical Cap, Surgical Mask, Sterile Gloves, Sterile Drape/Sheet and Chlorhexidine Procedure Location: L2-L3 Interspace Epidural Needle: Tuohy 17 Guage Needle Length: 3.5 Inch Needle Approach: Midline Epidural Procedure: KAUSHIK to Saline Used Catheter Placed?: Catheter Placed (wire reinforced. ) Test Dose (Indicate Dose Given): 3ml 1.5% Lidocaine with 1:200K Epinephrine Given Loss of Resistance Depth (cm): 6 Catheter depth at skin (cm): 11 Dressing: Sorbaview Dressing Placed and Mastisol Used Epidural Provider Bolus (Indicate Dose Given): Total Ropivacaine 0.1% with Fentanyl 2mcg/ml Given from pump. (ml) (7 mL + 5 mL) Dose:: 12 mL Additives (Indicate Dose Given ): None Infusion Medication: Medication Infusion Began Medication Infusion: Ropivacaine 0.1% with Fentanyl 2mcg/ml Maintenance Infusion Rate (ml/hour): 10 PCEA Bolus Dose (ml): 5 Block Level: N/A Paresthesia: None Ultrasound: Used to marcie site Number of Attempts (See previous attempts in note section): 2 Procedure Tolerated: No Complications Procedure Outcome: Successful Procedure Comment:: Attempt 1 at L3-4, very uncomfortable with attempt, given pain and no KAUSHIK site abandoned and moved up a level with very straight forward success. Performed By: Jesus Kang
[2025-02-23] MEDS: FentaNYL/ROPIvacaine 2 mcg/ml and 0.1% 200 ML CADD Cassette EP (15:00)
--- NOTE | 2025-02-23 16:43 | W.OBDELIVERY ---
Date of service: 02/23/25 Time of Service: 16:43 OB Labor/ Delivery Information Baby A Delivery Delivery Method: Spontaneaous Presentation: Cephalic Cephalic Position: Vertex Vertex Position: Right Occipital Anterior Breech Position: N/A Cord Description-Baby A: 3 Vessels and Nuchal Cord (reduced over shoulder and shoulders delivered easily) Amniotic Fluid: Clear Estimated Blood Loss: QBL 450 Delivery Outcome: Liveborn Infant Transferred: Remains with Mother Note: Epidural placed successfully and was effective, pt turned to right side to rest, SROM of clear fluid and urges to push began, after 2-3 pushes of a vigorous female infant over intact perineum, nuchal cord noted and reduced as anterior shoulder emerged, body delivered quickly with cord wrapped multiple times around torso and unwound before placed in mother's arms. pitocin infusion started, cord ceased pulsating and was clamped then cut by FOB, cord blood collected, placenta detached and seemed ready to deliver but cord evulsed on gentle traction, placenta palpated partially through the cervix, was easily grasped and manually removed intact with trailing membranes. First degree perineal laceration repaired with 3.0 Vicryl, fundus firm below umbilicus and lochia is scant, strong family bonding observed, apgars 8/9, weight 3765 gms. Providers Nurse General Internal Medicine Physician: Nina Banda Dam Tender: Jesus Kang Nurse: Jing Lopez Nurse: Candida Robbins Labor/Delivery Information Number of Babies in Womb: 1 Steroids Given: None Reason Steroids Not Administered: N/A Group Beta Strep: Negative Antibiotics Administered: No Rubella Status: Immune Blood Type: AB+ Varicella Immunity: Immune Shoulder Dystocia: No Stages of Labor Onset of Labor Date: 02/23/25 Onset of Labor Time: 09:00 Complete Dilatation Date: 02/23/25 Complete Dilatation Time: 15:44 Labor - Stage 1 Duration: 6 hours and 44 minutes ROM Baby A: 02/23/25 ROM Baby A: 15:42 ROM Total Time- Baby A: [id number] Infant Delivery Date-Baby A: 02/23/25 Infant Delivery Time-Baby A: 15:50 Labor Stage 2 Duration: 6 minutes Placenta Delivery Date-Baby A: 02/23/25 Placenta Delivery Time-Baby A: 15:59 Labor-Stage 3 Duration: 9 minutes Total Length of Labor-Baby A: 6 hours and 50 minutes Placenta Status: Delivered Baby A Gender: Female Gestational Status: Term (39-41.6 wks) Gestational Age in Weeks/Days: 39 Weeks and 2 Days weight: 8 lb 4.806 oz Weight Comment: 3765 gms Length-Baby A: 20.87 in Score-1 Minute Interval(Baby A) Heart Rate-1 minute: 100 BPM or Greater Respiratory Effort- 1 minute: Spontaneous/Strong Cry Muscle Tone-1 minute: Active Movement Reflex Response-1 minute: Prompt Response Color-1 minute: Pallor or Cyanosis Total Score-1 minute: 8 Score-5 Minute Interval(Baby A) Heart Rate- 5 minute: 100 BPM or Greater Respiratory Effort-5 minute: Spontaneous/Strong Cry Muscle Tone-5 minute: Active Movement Reflex Response-5 minute: Prompt Response Color-5 minute: Bluish Hands or Feet Total Score- 5 minute: 9
[2025-02-23] MEDS: Hamamelis Leaf/Glycerin 100 EACH BOX PR (20:15)
[2025-02-23] MEDS: Ibuprofen 600 MG TAB PO (20:15)
[2025-02-23] MEDS: Acetaminophen 325 MG TAB 650 MG PO (20:15)
[2025-02-23] MEDS: Dibucaine 1% 28 GM TUBE TP (20:29)
[2025-02-24 00:17] VITALS: BP 112/71; PULSE 78; RESP 18; TEMP 37.1
[2025-02-24] MEDS: Ibuprofen 600 MG TAB PO ×2 (07:12→14:49)
[2025-02-24] MEDS: Acetaminophen 325 MG TAB 650 MG PO ×2 (07:12→14:49)
[2025-02-24 07:24] VITALS: BP 112/83; PULSE 92; RESP 18; TEMP 36.8; O2SAT 97
--- NOTE | 2025-02-24 11:15 | W.PM.OBPNV1 ---
Date of service: 02/24/25 Time of Service: 11:15 Assessment and Plan Assessment and plan (1) Term delivered: Status: Acute Assessment and plan: A: PPD#1, nml recovery going well, pt satisfied with experience P: Pt desires discharge this afternoon @ 24 hrs Plans condoms as contraception Written instructions reviewed and given to pt F/up at 2 & 6 wks Subjective Subjective Patient comments: No complaints, Pain well controlled, Tolerating diet and Flatus present Patient's Mood: happy baby status: Doing well, Nursing well, Rooming in and Strong Bonding Observed feeding status: Exclusively breast feeding Exam Physical Exam Vital signs: Temp Pulse Resp BP Pulse Ox 98.2 F 92 H 18 112/83 97 02/24/25 07:24 02/24/25 07:24 02/24/25 07:24 02/24/25 07:24 02/24/25 07:24 Vital Signs Reviewed: Yes Constitutional Constitutional: no acute distress, average body habitus and cooperative HEENT Exam HEENT Exam: Normal Neck Exam Neck Exam: Normal Breast Exam Bilateral: Breast Exam: Normal and Soft Nipple Exam: Normal and Uninjured Respiratory Exam Respiratory Exam: Normal Cardiovascular Exam Cardiovascular Exam: Normal Abdominal Exam Abdomen: Other (gravid, nontender) Fundal Exam Fundus: Below Umbilicus and Firm Rectal Exam Rectal Exam: Normal Exam Perineum: Repair Intact Extremities Exam Extremity Exam: Normal, Full ROM and Warm to Touch Back/Spine/Pelvis Exam Back Exam: Normal (band-aid at epidural site, pt reports it feels sore, no redness or edema.) Skin Exam Skin Exam: Normal Neurological Exam Neurological Exam: Normal Psychiatric Exam Psychiatric Exam: Normal Results Hemoglobin/Hematocrit: Hgb 12.1 g/dL (11.2-15.7) 02/23/25 13:51 Hct 37.2 % (36.0-46.0) 02/23/25 13:51 Abnormal Lab Findings: Abnormal Labs 02/23/25 13:51 WBC 16.65 H RDW 15.0 H AST 11 L ALT 11 L Alkaline Phosphatase 190 H Albumin 2.5 L
--- NOTE | 2025-02-24 11:21 | DSE_ITS ---
Date of service: 02/24/25 Time of Service: 11:21 DS: Diagnosis Discharge Diagnosis (1) Term delivered: Status: Acute Discharge Plan Disposition Patient Disposition: Home Condition: Good Discharge Details Reason For Visit: R/O Admit Date/Time: 02/23/25 13:32 Admit Provider: Nina Banda Attending Provider: Nina Banda Primary Care Provider: Shahla Molina Hospital Course Hospital Course: under epidural on day of admission, pt requests discharge on day one, nml recovery Home Meds and New Rx's Prescriptions: No Action diphenhydramine HCl [Allergy (diphenhydramine)] 25 mg capsule 50 mg PO BID PRN (Reason: allergies) PNV 119-iron fum-folic acid 29 mg iron- 1 mg tablet 1 tab PO DAILY ondansetron 4 mg tablet,disintegrating 4 mg PO Q6H PRN (Reason: nausea and vomiting) Qty: 14 0RF pantoprazole [Protonix] 40 mg tablet,delayed release (DR/EC) 40 mg PO DAILY Qty: 30 7RF cholecalciferol (vitamin D3) 50 mcg (2,000 unit) capsule 50 mcg PO DAILY Qty: 90 4RF PNV,calcium 64-tbob-vmltk acid 27 mg iron- 1 mg tablet 1 tab PO DAILY Qty: 90 6RF Rx Instructions: give with food (meal/snack) docusate sodium [Colace] 100 mg capsule 100 mg PO BID Qty: 60 4RF ferrous sulfate 325 mg (65 mg iron) tablet 325 mg PO DAILY Qty: 60 4RF famotidine 20 mg tablet 20 mg PO DAILY Qty: 90 6RF gzyjehacep-egkawymodbjfk-uduy [Fioricet] 50-300-40 mg capsule 1 cap PO Q8H PRN (Reason: pain) Qty: 7 0RF Rx Instructions: q8hr or as needed x 2 days (DME) Aerochamber Plus Flow-Vu 1 EACH spacer 1 ea Miscellaneous PRN Qty: 1 0RF Rx Instructions: Disp without mask. Use with MDI as directed albuterol sulfate [ProAir HFA] 90 mcg/actuation HFA aerosol inhaler 2 puff Inhalation Q4H PRN Qty: 1 2RF Rx Instructions: use with spacer cetirizine [Zyrtec] 10 mg tablet 10 mg PO DAILY Qty: 30 2RF Discharge Instructions Stand Alone Forms: BC Instructions, BC Post Vaginal Deliver Activity:: Activity as Tolerated Equipment/Supplies:: No Equipment Needed Diet:: Normal Diet Discharge Orders Discharge Orders: Discharge Order (Routine); Ordered 02/24/25 Ordered By: Nina Banda OB:DS Summary Summary Vaginal Delivery Method: Spontaneaous Episiotomy Description: None Laceration Description: Perineal Laceration Extension: First Degree Contraception Discussed Contraception Discussed: Yes Contraceptive Plan: Foam/Condoms, Infant Gender-Baby A: Female weight: 8 lb 4.806 oz Status at Discharge Functional status at discharge: independent ambulation Overall status at discharge: patient is progressing back to baseline Mental Status: mental status grossly normal Speech and Movement: speech and movement normal and speech clear Mood: congruent mood Affect: normal affect Quality:SDOH Health Related Social Needs: No Data to Display Exam Physical Exam Vital signs: Temp Pulse Resp BP Pulse Ox 98.2 F 92 H 18 112/83 97 02/24/25 07:24 02/24/25 07:24 02/24/25 07:24 02/24/25 07:24 02/24/25 07:24 Constitutional Constitutional: no acute distress, average body habitus and cooperative HEENT Exam HEENT Exam: Normal Neck Exam Neck Exam: Normal Breast Exam Bilateral: Breast Exam: Normal and Soft Respiratory Exam Respiratory Exam: Normal Cardiovascular Exam Cardiovascular Exam: Normal Abdominal Exam Abdomen: Other (gravid, nontender) Fundal Exam Fundus: Below Umbilicus and Firm Rectal Exam Rectal Exam: Normal Exam Perineum: Repair Intact Extremities Exam Extremity Exam: Normal, Full ROM and Warm to Touch Back/Spine/Pelvis Exam Back Exam: Normal (band-aid at epidural site, pt reports it feels sore, no redness or edema.) Skin Exam Skin Exam: Normal Neurological Exam Neurological Exam: Normal Psychiatric Exam Psychiatric Exam: Normal PFSH All Active Problems Term delivered (Acute) Generalized anxiety disorder (Acute) Bipolar 1 disorder with moderate raiza (Acute) BMI 31.0-31.9,adult (Acute) Smoker (Acute) vaping Medical History (Updated 02/24/25 @ 11:17 by Nina Banda) Normal labor Gestational proteinuria Elevated glucose level Fundal height high for dates Adopted person Multiple environmental allergies Mild intermittent asthma, uncomplicated (11/07/16) exercise trigger Migraine headache without aura Family history of drug abuse Gastro-esophageal reflux disease without esophagitis Cholelithiasis Post depression Headache disorder History of concussion sports and walked into a pole. Asthma, moderate persistent DUB (dysfunctional uterine bleeding) Cholecystolithiasis Dysmenorrhea Syncopal episodes History of tachycardia History of depression Dyslexia Encounter for removal of etonogestrel implant Family History Other Stroke grandmother Social History Smoking/Tobacco Use Status: Current every day Tobacco Type: e-cigarettes Smoking risk assessment performed?: Yes Alcohol Intake: never Drug use: Never Substance use type: does not use Adopted: Yes Housing: apartment Do you feel safe at home: Yes Do you feel safe in your relationship?: Yes Female Reproductive History Menstrual Age of Menarche: 14 control method: none History History 2 Para 1 Hx # Term Pregnancies 1 Multiple births 0 Hx # Pregnancies 0 Ectopic pregnancies 0 AB induced 0 Hx Number of Living Children 1 AB spontaneous 0 Past Pregnancies Del. Date GA/Weeks # Preg Succ Route Wgt Sex Labor Lgth Anesth esia Location Prov Complic 12/25/21 39 No Yes vaginal 8 lb 1.8 oz Female 5hrs 57min [facility] [place] Delivery Date: 12/25/21 Last Updated by: FLORENCIO Villagran; DS: Data Vitals/I&O Vitals and I&O: Vital Signs Temperature 98.2 F 02/24/25 07:24 Temperature Source Oral 02/24/25 07:24 Pulse 92 H 02/24/25 07:24 Pulse Rhythm Regular 02/24/25 07:24 Respiratory Rate 18 02/24/25 07:24 Blood Pressure 112/83 02/24/25 07:24 Blood Pressure Mean 92 02/24/25 07:24 Pulse Oximetry 97 02/24/25 07:24 Oxygen Delivery Method Room Air 02/23/25 13:47 Oxygen Flow Rate 0 02/23/25 13:47 Pain Level 3 02/23/25 20:15 Intake & Output 02/23/25 02/23/25 02/24/25 11:59 23:59 11:59 Output Total 400 / 400 650 / 650 Balance -400 / -400 -650 / -650 Weight 214 lb Output: Urine 400 / 400 650 / 650 Other: Urine Color Pale Data Completed and Pending Labs on day of discharge: Labs from last 24 hours 02/23/25 13:51 WBC 16.65 H RBC 4.28 Hgb 12.1 Hct 37.2 MCV 87 MCH 28.3 MCHC 32.5 RDW 15.0 H Plt Count 395 MPV 9.1 Sodium 140 Potassium 4.0 Chloride 107 Carbon Dioxide 23.7 Anion Gap 9.3 BUN 8 Creatinine 1.0 Est GFR (CKD-EPI 2020) 80.68 Glucose 87 Calcium 9.7 Total Bilirubin 0.3 AST 11 L ALT 11 L Alkaline Phosphatase 190 H Total Protein 6.8 Albumin 2.5 L ABO/Rh AB Positive Antibody Screen NEGATIVE
[2025-02-24 11:41] VITALS: BP 126/84; PULSE 95; TEMP 36.9
--- NOTE | 2025-02-24 13:50 | W.ANESPOSTOP ---
Postoperative Evaluation Date, Time and Location Date Performed: 02/24/25 Time Performed: 14:02 Patient Location: Obstetrics Vital Signs Most Recent Imported Vital Signs: Most Recent Vital Signs Temp Pulse Resp BP Pulse Ox 36.9 C 95 H 18 126/84 97 02/24/25 11:41 02/24/25 11:41 02/24/25 07:24 02/24/25 11:41 02/24/25 07:24 Pain Score Most Recent Pain Score: Most Recent Pain Score Pain Level 3 02/23/25 20:15 Assessment Mental Status: Awake (Alert & Oriented to Patient Baseline) Airway and Respiratory Function: Patent airway with normal (patient baseline) respiratory exam Cardiovascular Function: Hemodynamically Stable Hydration Status: Adequately Hydrated Nausea & Vomiting: No Nausea or Vomiting Pain: Pain is tolerable per patient Peripheral Nerve Block: Patient did not receive a nerve block
== END 2025-02-24 18:19 | disposition home or self-care (01) | DRG 806 ==
PROVIDERS: Admitting Provider Advanced Practice Midwife; PCP Physician Assistant; Visit Provider Advanced Practice Midwife
DX: O36.63X0 Maternal care for excessive fetal growth, third trimester, not applicable or unspecified (principal); O99.354 Diseases of the nervous system complicating childbirth; Z37.0 Single live birth; Z3A.39 39 weeks gestation of pregnancy; G43.009 Migraine without aura, not intractable, without status migrainosus; O69.81X0 Labor and delivery complicated by cord around neck, without compression, not applicable or unspecified; O70.0 First degree perineal laceration during delivery; O99.02 Anemia complicating childbirth; D64.9 Anemia, unspecified; O99.62 Diseases of the digestive system complicating childbirth; O99.344 Other mental disorders complicating childbirth; F31.9 Bipolar disorder, unspecified; F41.1 Generalized anxiety disorder; O99.334 Smoking (tobacco) complicating childbirth; F17.290 Nicotine dependence, other tobacco product, uncomplicated; O12.14 Gestational proteinuria, complicating childbirth; O99.52 Diseases of the respiratory system complicating childbirth; K21.9 Gastro-esophageal reflux disease without esophagitis; K59.00 Constipation, unspecified; J45.20 Mild intermittent asthma, uncomplicated
CPT/HCPCS: 36415; 80053; 85027; 86850; 86900; 86901

== ENCOUNTER 2025-03-09 15:03 | Outpatient (CLI) | payer MEDICAID, SELFPAY ==
[2025-03-09 14:40] LABS: HCT 37.4 % (36.0-46.0); HGB 11.7 g/dL (11.2-15.7); MCH 27.7 pg (27.0-33.0); MCHC 31.3 % (32.0-36.0); MCV 88 fL (80-95); MPV 8.3 fL (8.0-11.0); Platelet Count 495 10^3/uL (130-400); RBC 4.23 10^6/uL (3.93-5.22); RDW 14.7 % (11.7-14.6); RDW-SD 47.3 fL; WBC 8.87 10^3/uL (4.4-10.8)
[2025-03-09 15:04] LABS: TSH (W/Ref FT4) 0.64 uIU/mL (0.36-3.74)
== END 2025-03-09 15:04 | disposition home or self-care (01) ==
LOC: LBO 15:03
PROVIDERS: PCP Physician Assistant; Visit Provider Advanced Practice Midwife
DX: Z34.90 Encounter for supervision of normal pregnancy, unspecified, unspecified trimester (principal); R42 Dizziness and giddiness; Z39.2 Encounter for routine postpartum follow-up
CPT/HCPCS: 36415; 85027; 84443

== ENCOUNTER 2025-04-06 14:18 | Outpatient (REF) | payer MEDICAID, SELFPAY ==
--- NOTE | 2025-04-06 13:00 | PAPFT_PTH ---
PATIENT: Daisy Dawkins LOC: [facility] U#:[id number] AGE/SX: 24/F ROOM: RE04/06/[address]: Nina Banda CNM : 2000 BED: DIS: 04/06/2025 SPEC #: [id number] RECD: 04/06/25 18:18 STATUS: LULU REBryant #: [id number] OTILIA: 04/06/25 13:[address]: Nina Banda DEPT: [facility] Cytology RECD BY: Varsha Araujo ENTERED: 04/06/25 18:18 SP TYPE: PAPFT OTHR DR: Shahla Molina Tissues: 1 - CX/ENDOCX FOR PAP SMEARS Procedures: PAP THIN PREP/UVM Screening Comments: [id number]
== END 2025-04-06 14:19 | disposition home or self-care (01) ==
LOC: LBN 14:18
PROVIDERS: PCP Physician Assistant; Visit Provider Advanced Practice Midwife
DX: Z12.4 Encounter for screening for malignant neoplasm of cervix (principal)
CPT/HCPCS: 88142